=== PATIENT | female | born 1985 | race Two or more races ===

== ENCOUNTER 2020-09-23 14:32 | Outpatient (REF) | payer OTHER, SELFPAY ==
[2020-09-25 09:47] LABS: C. trachomatis RNA TMA NOT DETECTED (NOT DETECTED); N. gonorrhoeae RNA TMA NOT DETECTED (NOT DETECTED)
[2020-09-25 18:11] LABS: HPV mRNA E6/E7 rflx Not Detected (Not Detected)
== END 2020-09-23 14:33 | disposition home or self-care (01) ==
LOC: HO.LAB 14:32
PROVIDERS: PCP Internal Medicine; Visit Provider Advanced Practice Midwife
DX: Z01.419 Encounter for gynecological examination (general) (routine) without abnormal findings (principal); N88.9 Noninflammatory disorder of cervix uteri, unspecified; R51.9 Headache, unspecified; Z71.2 Person consulting for explanation of examination or test findings; Z20.2 Contact with and (suspected) exposure to infections with a predominantly sexual mode of transmission
CPT/HCPCS: 36415; 87491; 87591; 87624; 88142

== ENCOUNTER 2020-10-02 15:22 | Outpatient (REF) | payer OTHER, SELFPAY | END 2020-10-02 15:23 | disposition home or self-care (01) | LOC: HO.LAB 15:22 | PROVIDERS: PCP Internal Medicine; Visit Provider Obstetrics & Gynecology | DX: N88.9 Noninflammatory disorder of cervix uteri, unspecified (principal) | CPT/HCPCS: 57454; 88305 ==

== ENCOUNTER → 2020-10-16 12:06 | Outpatient (BNVA) | payer OTHER, SELFPAY | PROVIDERS: PCP Internal Medicine; Visit Provider Obstetrics & Gynecology ==

== ENCOUNTER 2021-03-27 14:27 | Outpatient (REF) | payer OTHER, SELFPAY ==
--- NOTE | ~2021-03-27 | MM_ITS ---
EXAMINATION: MM DIAGNOSTIC DIGITAL BREAST TOMOSYNTHESIS, BILATERAL US DIAGNOSTIC ULTRASOUND BREAST, RIGHT CLINICAL INFORMATION: 35-year-old with tender palpable fullness retroareolar right breast for approximately one month. The lifetime risk of breast cancer based on the Tyrer-Cuzick Model is 12%. COMPARISON: Mammography: 07/26/2018; targeted right breast ultrasound 07/26/2018 TECHNIQUE: Digital breast tomosynthesis is performed in both the craniocaudal and mediolateral oblique views along with computer-aided detection (CAD). Synthesized 2D images are generated from the tomosynthesis. Additional exaggerated right CC view is provided. Ultrasound right breast is targeted to the area of palpable concern retroareolar breast. Grayscale imaging and color Doppler are performed without and with harmonics. FINDINGS: The breasts are extremely dense, which lowers the sensitivity of mammography (ACR BI-RADS breast composition Category d). The right breast has increased density retroareolar region composition in area over 3 cm with probable obscured smooth margins on additional exaggerated CC mammographic sections. Neither breast shows architectural abnormality or abnormal calcifications. The axilla and skin contours are unremarkable. Ultrasound demonstrates an oval circumscribed hypoechoic mass retroareolar breast with smooth margins and overall size 3.7 x 2.5 x 3.3 cm. There is heterogeneous internal echogenicity with questionable motion on real-time imaging. A few scattered foci of color-flow near side may be related to this motion. No surrounding peripheral color flow. There are a few other scattered smaller cysts in the targeted area, and next largest measuring 1.4 x 0.6 cm 2:00 retroareolar. Prior ultrasound 07/26/2018 showed several small simple cysts, largest retroareolar measuring 2.7 x 1.4 x 1.5 cm. Results are discussed with the patient at time of visit. The retroareolar mass likely represents enlargement of a previously documented simple cyst in this area and now with complicated internal fluid, possibly increased protein content and/or cholesterol crystals or other sludge. Ultrasound guided aspiration is recommended. If lesion will not aspirate, then core sampling should be performed at same appointment. Results and recommendation called to office ([place]) for Dr. Vik Hawkins on 03/27/2021. MM/MM tomosynthesis diagnostic RT IMPRESSION: 1. Right: Probable complicated cyst retroareolar position corresponding to palpable concern and measuring 3.7 cm in greatest dimension. 2. Left: No mammographic evidence of malignancy. ASSESSMENT: BI-RADS 4: Suspicious (subcategory 4A: Low suspicion for malignancy) RECOMMENDATION: Ultrasound-guided aspiration retroareolar right breast. If lesion will not aspirate, then core sampling should be performed at same appointment.
== END 2021-03-27 14:28 | disposition home or self-care (01) ==
LOC: HO.MAMMO 14:27
PROVIDERS: Visit Provider Internal Medicine
DX: N63.11 Unspecified lump in the right breast, upper outer quadrant (principal)
CPT/HCPCS: 76642; 77061; 77065

== ENCOUNTER 2021-04-02 08:56 | Outpatient (REF) | payer OTHER, SELFPAY ==
--- NOTE | ~2021-04-02 | US_ITS ---
EXAMINATION: US BREAST CYST ASPIRATION, RIGHT CLINICAL INFORMATION: Breast lump and pain retroareolar region. COMPARISON: 03/27/2021 TECHNIQUE: Ultrasound-guided right breast cyst aspiration. FINDINGS: Informed consent was obtained from the patient prior to the procedure. During this process, the procedure and potential alternatives were explained, along with the intended outcome and benefits. The risks of the procedure, as well as the risk of not doing the procedure, were discussed. The patient was given the opportunity to ask questions regarding the procedure and appeared competent to make medical decisions. A signed consent form which documents this discussion was placed in the medical record. Using sterile technique and ultrasound guidance, an 18-gauge needle was directed into the retroareolar lesion with approximately 14 mL of cloudy yellow fluid being removed. The lesion aspirated entirely with some adjacent sound shadowing but which is related to nipple shadow. The fluid was not bloody. Patient tolerated the procedure without difficulty. US/US breast cyst asp RT IMPRESSION: Aspiration of right breast retroareolar complex cyst, as described. BI-RADS 2, Benign.
== END 2021-04-02 08:57 | disposition home or self-care (01) ==
LOC: HO.MAMMO 08:56
PROVIDERS: Visit Provider Surgery
DX: N63.11 Unspecified lump in the right breast, upper outer quadrant (principal); R92.1 Mammographic calcification found on diagnostic imaging of breast
CPT/HCPCS: 19000

== ENCOUNTER 2021-09-25 15:15 | Outpatient (REF) | payer OTHER, SELFPAY ==
[2021-09-26 00:57] LABS: CT PCR NOT DETECTED (Not Detect.); NG PCR NOT DETECTED (Not Detect.)
[2021-09-26 12:17] LABS: BV Int Neg Control Negative (Negative); BV Int Pos Control Positive (Positive)
[2021-09-28 05:26] LABS: HPV mRNA E6/E7 rflx Not Detected (Not Detected)
== END 2021-09-25 15:16 | disposition home or self-care (01) ==
LOC: HO.LAB 15:15
PROVIDERS: Visit Provider Advanced Practice Midwife
DX: Z01.419 Encounter for gynecological examination (general) (routine) without abnormal findings (principal); N88.9 Noninflammatory disorder of cervix uteri, unspecified; N89.8 Other specified noninflammatory disorders of vagina; N93.0 Postcoital and contact bleeding; N92.1 Excessive and frequent menstruation with irregular cycle; Z20.2 Contact with and (suspected) exposure to infections with a predominantly sexual mode of transmission
CPT/HCPCS: 87480; 87491; 87510; 87591; 87624; 87660; 88142

== ENCOUNTER 2021-11-15 13:17 | Outpatient (REF) | payer OTHER, SELFPAY ==
[2021-11-17 10:16] LABS: BV Int Neg Control Negative (Negative); BV Int Pos Control Positive (Positive)
== END 2021-11-15 13:18 | disposition home or self-care (01) ==
LOC: HO.LNP 13:17
PROVIDERS: Visit Provider Physician Assistant
DX: N94.9 Unspecified condition associated with female genital organs and menstrual cycle (principal)
CPT/HCPCS: 87255; 87480; 87510; 87660

== ENCOUNTER 2022-01-16 09:27 | Outpatient (REF) | payer OTHER, SELFPAY ==
[2022-01-16 10:50] LABS: Basophils Percent Auto 0.6 % (0-2); Eosinophils Absolute Auto 0.1 X10*3/uL (0.0-0.4); Eosinophils Percent Auto 0.9 % (0-4); Hematocrit 38.9 % (37.0-47.0); Hemoglobin 12.8 g/dl (12.0-16.0); Imm Gran Abs Auto 0.02 X10*3/uL (0.00-0.03); Imm Gran Pct Auto 0.3 % (0.0-0.4); Lymphocytes Absolute Auto 2.7 X10*3/uL (1.2-4.9); MANUAL DIFF FLAG NO; Mean Corpuscular HGB Conc 32.9 g/dl (31.0-35.0); Mean Corpuscular Hemoglobin 27.6 pg (27.0-33.0); Mean Corpuscular Volume 83.8 fL (80.0-98.0); Mean Platelet Volume 11.3 fL (9.4-12.3); Monocytes Absolute Auto 0.5 X10*3/uL (0.1-1.2); Monocytes Percent Auto 7.9 % (2-11); Neutrophils Absolute Auto 3.5 x10*3/uL (2.0-8.3); Neutrophils Percent Auto 51.3 % (45-73); Platelet Count 181 X10*3/uL (160-400); Red Blood Count 4.64 X10*6/uL (4.20-5.50); Red Cell Distribution Width 12.9 % (11.0-16.0); White Blood Count 6.8 X10*3/uL (4.8-10.8)
[2022-01-16 11:17] LABS: Alanine Aminotransferase 15 U/L (0-31); Albumin Level 4.5 g/dL (3.5-5.0); Alkaline Phosphatase 74 U/L (39-117); Anion Gap 13 (12-20); Aspartate Amino Transferase 22 U/L (5-31); Blood Urea Nitrogen 12 mg/dL (9-16); Calcium 9.3 mg/dL (8.4-10.2); Carbon Dioxide 23 mmol/L (22-29); Chloride 106 mmol/L (96-108); Cholesterol 255 mg/dL; Estimated Glomerular Filt Rate > 60; Glucose Fasting 93 mg/dL (60-99); HDL Cholesterol 66 mg/dL; LDL Cholesterol Calculated 171 mg/dl; Potassium 4.1 mmol/L (3.3-5.1); Sodium 138 mmol/L (135-145); Total Protein 7.5 g/dL (6.5-8.0); Triglycerides 91 mg/dL
[2022-01-16 11:32] LABS: HBc Num1 0.14 S/CO (0.00-0.79); HIV AB/AG Nonreactive (Nonreactive); HIV Num 1 0.08 S/CO (0.00-0.99); Hepatitis B Core Antibody Nonreactive (Nonreactive); ~HepC Num1 0.07 S/CO (0.00-0.79); ~Hepatitis C Antibody Nonreactive (Nonreactive)
[2022-01-16 11:37] LABS: TSH reflex Free T4 1.93 uIU/mL (0.32-4.0)
[2022-01-16 11:39] LABS: Syphilis Screen Nonreactive (Nonreactive)
[2022-01-22 16:22] LABS: Vitamin D 25-OH, D2 <4 ng/mL; Vitamin D 25-OH, D3 29 ng/mL; Vitamin D 25-OH, Total 29 ng/mL (30-100)
== END 2022-01-16 09:28 | disposition home or self-care (01) ==
LOC: HO.LAB 09:27
PROVIDERS: Absent Provider Internal Medicine; PCP Internal Medicine; Visit Provider Advanced Practice Midwife
DX: Z00.01 Encounter for general adult medical examination with abnormal findings (principal); R14.0 Abdominal distension (gaseous); R19.4 Change in bowel habit; Z20.2 Contact with and (suspected) exposure to infections with a predominantly sexual mode of transmission
CPT/HCPCS: 36415; 80053; 80061; 82306; 84443; 85025; 86704; 86780; 86803; 87389

== ENCOUNTER 2022-06-01 13:58 | Outpatient (REF) | payer OTHER, SELFPAY ==
[2022-06-01 15:04] LABS: Influenza A PCR NEGATIVE (Negative); Influenza B PCR NEGATIVE (Negative); Resp Syncy Virus RNA Qual PCR NEGATIVE (Negative); SARS COV2 PCR INHOUSE NEGATIVE (Negative)
== END 2022-06-01 13:59 | disposition home or self-care (01) ==
LOC: HO.LNP 13:58
PROVIDERS: Visit Provider Internal Medicine
DX: R43.9 Unspecified disturbances of smell and taste (principal); J02.9 Acute pharyngitis, unspecified; Z20.822 Contact with and (suspected) exposure to COVID-19
CPT/HCPCS: 0241U

== ENCOUNTER → 2022-10-02 15:19 | Outpatient (BNVA) | payer OTHER, SELFPAY | PROVIDERS: PCP Internal Medicine; Visit Provider Internal Medicine | DX: S60.221A Contusion of right hand, initial encounter (principal); X50.1XXA Overexertion from prolonged static or awkward postures, initial encounter | CPT/HCPCS: 73130; 99202 ==

== ENCOUNTER 2023-02-18 11:14 | Outpatient (REF) | payer OTHER, SELFPAY ==
[2023-02-19 03:09] LABS: CT PCR NOT DETECTED (Not Detect.); NG PCR NOT DETECTED (Not Detect.)
== END 2023-02-18 11:15 | disposition home or self-care (01) ==
LOC: HO.LNP 11:14
PROVIDERS: PCP Internal Medicine; Visit Provider Advanced Practice Midwife
DX: Z20.2 Contact with and (suspected) exposure to infections with a predominantly sexual mode of transmission (principal)
CPT/HCPCS: 0353U

== ENCOUNTER 2023-02-18 11:14 | Outpatient (AMB) | payer OTHER, SELFPAY ==
--- NOTE | 2023-02-18 11:16 | MHC.OFFVIS ---
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 Scribed for BRONWYN Talbert by Karla Rinaldi certified medical technician assistant, on 02/18/2023 Document Manager: Document Manager Present (aJne) Allergies amoxicillin Allergy (Unknown, Verified 02/18/23 11:20) hives ethinyl estradiol [Ortho Tri-Cyclen LO (28)] Adverse Reaction (Unknown, Verified 02/18/23 11:20) chest pain norgestimate [Ortho Tri-Cyclen LO (28)] Adverse Reaction (Unknown, Verified 02/18/23 11:20) chest pain Is last menstrual period known: Yes Last menstrual period: 02/10/23 Post menopausal: No Patient : No HPI HPI Comments History of Present Illness Details She is a premenopausal woman presenting for annual exam. She admits to eating healthy and tries to stay active with exercise. Currently sexually active, being careful . Is interested to know if she can get , not actively planning. Regular monthly periods. Denies vaginal itching and irritation. STD screening offered; she declines. Denies family hx of colon and ovarian cancer. Last pap smear 09/25/21. FORMERLY [facility] Medical History HPV test positive Surgical History Hx of LASIK Hx of wisdom tooth extraction Family History Maternal Aunt History of breast cancer Social History Housing: House Alcohol intake: current Alcohol intake frequency: holidays/special occasions only Patient Tobacco Use Status: Never used Tobacco e-Cigarette/Vaping Use: Never Used Second Hand Smoke Exposure: No service: No Current occupational status: employed Gender identity: Female Cognitive needs: No Hearing needs: No Vision needs: No Female Reproductive History Menstrual Age of Menarche: 12 Duration of menses: 3-5 days Date of last menstrual period: 02/10/23 control method: none Total pregnancies: 0 Date of last pap smear: 09/25/21 (neg pap and hpv) Physical Exam Vital Signs: Last Vital Signs BP 100/64 02/18/23 11:17 BMI result Body Mass Index 23.6 Const General: cooperative, healthy appearing, no acute distress, well developed and alert Orientation/consciousness: patient oriented x3 HEENT Head: Yes normal to inspection Eyes General: appearance normal, both eyes and all related structures Neck Neck: Yes normal visual inspection Thyroid: Thyroid normal Chest Chest palpation & inspection: normal inspection of the chest Breast/axilla inspection: normal inspection of the breasts (no puckering, dimpling, peau de orange, retraction, discharge, masses) Breast/axilla palpation: normal palpation of the breasts Resp Effort & Inspection: normal respiratory effort GI Inspection: Yes normal to inspection Palpation (GI): Soft to palpation (to palpation) Rectal Exam - Female: deferred Other: v-shaped lesion on cervix General: Yes bladder normal to inspection External Female Exam: normal external appearance and normal appearance of the urethra Speculum Exam - Vagina: normal appearance of the vagina, normal palpation and normal vaginal discharge Speculum Exam - Cervix: normal appearance of the cervix and normal palpation Bimanual exam- vagina & uterus: normal palpation and normal palpation Bimanual Exam- Adnexa, other: normal adnexae and no masses Skin General skin exam: no rashes or lesions noted Neuro General: patient oriented x3 Cognition (Neuro): normal cognition Extrem General: Yes normal to inspection Psych Attitude: cooperative Thought process: Normal thought process present Assessment & Plan Assessment & Plan (1) Encounter for well woman exam: Code(s): Z01.419 - Encounter for gynecological examination (general) (routine) without abnormal findings Plan: Discussed: Current recommendations for pap smears per ASCCP guidelines Breast awareness and periodic self breast exams. Maintaining a healthy lifestyle including a well balanced diet and routine exercise. Consult with fertility specialist regarding infertility-pt. will call if desires a ref. to [facility]. Safe sex for now. Consider PNV if plans ahead of time if planning . AMA, risks with age and . All of her questions and concerns were addressed to the best of my ability. RTO in one year for AG. (2) Pre-conception counseling: Code(s): Z31.69 - Encounter for other general counseling and advice on procreation Orders: Orders CT NG by PCR Today Z20.2 - Contact with and (suspected) exposure to infections with a predominantly sexual mode of transmission Coding Level of Care Code Est Pt Prev Care 18-39y(79657) Diagnoses Encounter for well woman exam Z01.419 Pre-conception counseling Z31.69
[2023-02-18 11:17] VITALS: BP 100/64; BMI 23.6
== END 2023-02-18 12:50 | disposition home or self-care (01) ==
LOC: HO.HWS 11:14
PROVIDERS: PCP Internal Medicine; Visit Provider Advanced Practice Midwife
DX: Z01.419 Encounter for gynecological examination (general) (routine) without abnormal findings (principal)
CPT/HCPCS: 99395

== ENCOUNTER 2023-05-20 08:18 | Outpatient (AMB) | payer OTHER, SELFPAY ==
[2023-05-20 09:34] VITALS: BP 110/70; PULSE 77; TEMP 36.8; O2SAT 98; BMI 24.3
--- NOTE | 2023-05-20 09:34 | AM.OFFWIN_ITS ---
Intake Vital Signs 05/20/23 09:34 Height 5 ft 3 in Weight 137 lb BMI 24.3 BP 110/70 Blood Pressure Location Lt brachial Position Sitting Pulse 77 Pulse Source Pulse Oximeter Temp 98.2 F Temp Source Oral Pulse Oximetry (%) 98 Oxygen Delivery Method Room Air Intake Visit Reasons: EP, left ear pain, congestion ([phone]) Intake Note: Pt is here today c/o Lt ear pain and sinus congestion x4days and sorethroat Patient Tobacco Use Status: Never used Tobacco Allergies amoxicillin Allergy (Unknown, Verified 05/20/23 09:36) hives ethinyl estradiol [Ortho Tri-Cyclen LO (28)] Adverse Reaction (Unknown, Verified 05/20/23 09:36) chest pain norgestimate [Ortho Tri-Cyclen LO (28)] Adverse Reaction (Unknown, Verified 05/20/23 09:36) chest pain Do you need a note to return to daycare/school/sports/work: Yes HPI HPI Comments History of Present Illness Details Patient is a 37-year-old female in for a sick visit. Patient reports left ear pain, sore throat, and sinus congestion x1 day. Patient has used [id number] medications with little effect. 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 Negative at home COVID test. Patient's right TM visible pearly garcia, left TM positive for erythema and fluid . No sinus tenderness. No mastoid tenderness. Clear nasal discharge. Tonsils +1, no petechiae. Patient likely has left otitis media. Unlikely mastoiditis. Plan will be for patient to take the full course of azithromycin p.o, and use Tylenol and Motrin p.r.n. FORMERLY [facility], [facility] Medical History HPV test positive Surgical History Hx of LASIK Hx of wisdom tooth extraction Family History Maternal Aunt History of breast cancer Social History Housing: House Alcohol intake: current Alcohol intake frequency: holidays/special occasions only Patient Tobacco Use Status: Never used Tobacco e-Cigarette/Vaping Use: Never Used Second Hand Smoke Exposure: No service: No Current occupational status: employed Gender identity: Female Cognitive needs: No Hearing needs: No Vision needs: No Female Reproductive History Menstrual Age of Menarche: 12 Review of Systems Const Denies body aches, Denies chills, Denies fever(s) and Denies headache(s) ENT Denies dizziness, Reports otalgia (Left ear), Denies headache(s), Reports nasal discharge (Clear) and Reports sore throat Resp Denies wheezing Neuro Denies dizziness and Denies headache(s) Aller/Immun Denies wheezing Physical Exam Vital Signs: Last Vital Signs Temp 98.2 F 05/20/23 09:34 Pulse 77 05/20/23 09:34 BP 110/70 05/20/23 09:34 Pulse Ox 98 05/20/23 09:34 Oxygen Delivery Method Room Air 05/20/23 09:34 BMI result Body Mass Index 24.3 Const General: cooperative and no acute distress Orientation/consciousness: patient oriented x3 Limitations: no limitations HEENT Head: Yes normocephalic Ears: external ears normal, TM normal on the right, mastoids normal and TM abnormal (Left TM) erythematous General nose exam: Nasal discharge present clear Face and sinus: Yes sinuses nontender Mouth: Normal oral and palatal mucosa present Neck Neck: Yes no lymphadenopathy Resp Effort & Inspection: normal respiratory effort Auscultation: clear to auscultation bilaterally Neuro General: patient oriented x3 Results AMB Rapid Strep AMB Rapid Strep Negative Last Edit by Mary Diaz CMA on 05/20/23 09:56 Results Reviewed Results Reviewed: Laboratory Last Values Strep Scn Rapid Clinic Negative 05/20/23 09:50 Assessment & Plan Assessment & Plan (1) Otitis media: Code(s): H66.90 - Otitis media, unspecified, unspecified ear Qualifiers: Chronicity: acute Laterality: left Orders: Orders AMB Rapid Strep Screen Today Z13.9 - Encounter for screening, unspecified SARS-CoV2/FLU/RSV Today J06.9 - Acute upper respiratory infection, unspecified Medications: New azithromycin For 250 mg dose pack: take 500 mg today (day 1), then 250 mg for 4 days (days 2-5) PO 6 tabs 0RF Coding Level of Care Code Est Pt Level 3 (70439) Diagnoses Otitis media H66.90 Chronicity: acute Laterality: left Time Spent (min) 20
--- NOTE | 2023-05-20 10:11 | MHC.OFFWIV ---
Intake Vital Signs 05/20/23 09:34 Height 5 ft 3 in Weight 137 lb BMI 24.3 BP 110/70 Blood Pressure Location Lt brachial Position Sitting Pulse 77 Pulse Source Pulse Oximeter Temp 98.2 F Temp Source Oral Pulse Oximetry (%) 98 Oxygen Delivery Method Room Air Intake Visit Reasons: EP, left ear pain, congestion ([phone]) Patient Tobacco Use Status: Never used Tobacco Allergies amoxicillin Allergy (Unknown, Verified 05/20/23 09:36) hives ethinyl estradiol [Ortho Tri-Cyclen LO (28)] Adverse Reaction (Unknown, Verified 05/20/23 09:36) chest pain norgestimate [Ortho Tri-Cyclen LO (28)] Adverse Reaction (Unknown, Verified 05/20/23 09:36) chest pain PFSH Medical History HPV test positive Surgical History Hx of LASIK Hx of wisdom tooth extraction Family History Maternal Aunt History of breast cancer Social History Housing: House Alcohol intake: current Alcohol intake frequency: holidays/special occasions only Patient Tobacco Use Status: Never used Tobacco e-Cigarette/Vaping Use: Never Used Second Hand Smoke Exposure: No service: No Current occupational status: employed Gender identity: Female Cognitive needs: No Hearing needs: No Vision needs: No Female Reproductive History Menstrual Age of Menarche: 12 Physical Exam Vital Signs: Last Vital Signs Temp 98.2 F 05/20/23 09:34 Pulse 77 05/20/23 09:34 BP 110/70 05/20/23 09:34 Pulse Ox 98 05/20/23 09:34 Oxygen Delivery Method Room Air 05/20/23 09:34 BMI result Body Mass Index 24.3 Results AMB Rapid Strep AMB Rapid Strep Negative Last Edit by Mary Diaz CMA on 05/20/23 09:56 Results Reviewed Results Reviewed: Laboratory Last Values Strep Scn Rapid Clinic Negative 05/20/23 09:50 Assessment & Plan Assessment & Plan Orders: Orders AMB Rapid Strep Screen Today Z13.9 - Encounter for screening, unspecified Coding
== END 2023-05-20 11:17 | disposition home or self-care (01) ==
PROVIDERS: PCP Internal Medicine; Visit Provider Nurse Practitioner Primary Care
DX: H66.92 Otitis media, unspecified, left ear (principal); J02.9 Acute pharyngitis, unspecified
CPT/HCPCS: 87880; 99213; 99499

== ENCOUNTER 2023-05-20 10:39 | Outpatient (REF) | payer OTHER, SELFPAY ==
[2023-05-20 14:28] LABS: Influenza A PCR NEGATIVE (Negative); Influenza B PCR NEGATIVE (Negative); Resp Syncy Virus RNA Qual PCR NEGATIVE (Negative); SARS COV2 PCR INHOUSE NEGATIVE (Negative)
== END 2023-05-20 10:40 | disposition home or self-care (01) ==
LOC: HO.LAB 10:39
PROVIDERS: Visit Provider Nurse Practitioner Primary Care
DX: Z11.52 Encounter for screening for COVID-19 (principal); J06.9 Acute upper respiratory infection, unspecified
CPT/HCPCS: 0241U

== ENCOUNTER 2023-08-06 09:32 | Outpatient (AMB) | payer OTHER, SELFPAY ==
--- NOTE | 2023-08-06 10:13 | AM.OFFWIN_ITS ---
Intake Vital Signs 08/06/23 10:18 Height 5 ft 3 in Weight 137 lb 2 oz BMI 24.3 BP 106/72 Blood Pressure Location Lt brachial Position Sitting Pulse 95 Pulse Source Pulse Oximeter Temp 97.5 F Temp Source Oral Pulse Oximetry (%) 98 Oxygen Delivery Method Room Air Intake Visit Reasons: EP, headache,sore throat,earache([phone]) Intake Note: Pt is here today for head and sore throat, pt states it started couple days ago Patient Tobacco Use Status: Never used Tobacco Allergies amoxicillin Allergy (Unknown, Verified 08/06/23 10:13) hives ethinyl estradiol [Ortho Tri-Cyclen LO (28)] Adverse Reaction (Unknown, Verified 08/06/23 10:13) chest pain norgestimate [Ortho Tri-Cyclen LO (28)] Adverse Reaction (Unknown, Verified 08/06/23 10:13) chest pain Do you need a note to return to daycare/school/sports/work: Yes HPI HPI Comments History of Present Illness Details 37 y/o female presents to walk in clinic with c/o headaches, sore- throat and ear pain PFSH Medical History HPV test positive Surgical History Hx of LASIK Hx of wisdom tooth extraction Family History Maternal Aunt History of breast cancer Social History Housing: House Alcohol intake: current Alcohol intake frequency: holidays/special occasions only Patient Tobacco Use Status: Never used Tobacco e-Cigarette/Vaping Use: Never Used Second Hand Smoke Exposure: No service: No Current occupational status: employed Gender identity: Female Cognitive needs: No Hearing needs: No Vision needs: No Female Reproductive History Menstrual Age of Menarche: 12 Review of Systems Const All systems reviewed & are unremarkable except as noted in HPI and below Physical Exam Vital Signs: Last Vital Signs Temp 97.5 F 08/06/23 10:18 Pulse 95 08/06/23 10:18 BP 106/72 08/06/23 10:18 Pulse Ox 98 08/06/23 10:18 Oxygen Delivery Method Room Air 08/06/23 10:18 BMI result Body Mass Index 24.3 Const General: comfortable and no acute distress HEENT Head: Yes normocephalic Ears: external ears normal and TM's normal bilaterally General nose exam: Normal nasal mucous membranes and turbinates present Face and sinus: Yes sinuses nontender Mouth: Normal oral and palatal mucosa present and moist mucous membranes Throat: Yes posterior oropharynx normal and Yes postnasal drainage Resp Effort & Inspection: normal respiratory effort Auscultation: clear to auscultation bilaterally Cardio Rate: regular rate Rhythm: regular rhythm Results AMB Rapid Strep AMB Rapid Strep Negative Last Edit by Selene Mejia CMA on 08/06/23 10 :31 Results Reviewed Results Reviewed: Laboratory Last Values Strep Scn Rapid Clinic Negative 08/06/23 10:30 Assessment & Plan Assessment & Plan (1) Upper respiratory tract infection: Code(s): J06.9 - Acute upper respiratory infection, unspecified Qualifiers: Pharyngitis/tonsillitis etiology: other specified organisms URI type: acute pharyngitis Qualified Code(s): J02.8 - Acute pharyngitis due to other specified organisms Plan: - Warm fluids - Rest - OTC cold remedies -Zpack Orders: Orders AMB Rapid Strep Screen Today Z13.9 - Encounter for screening, unspecified SARS-CoV2/FLU/RSV Today J06.9 - Acute upper respiratory infection, unspecified Medications: New acetaminophen 500 mg PO Q6H PRN 30 caps 0RF pain (scale score 4-6) azithromycin 500 mg PO DAILY 3 days 3 tabs 0RF benzonatate 200 mg (2 x 100 mg) PO TID 90 caps 0RF J06.9 - Acute upper respiratory infection, unspecified Coding Level of Care Code Est Pt Level 3 (77395) Diagnoses Acute pharyngitis due to other specified organisms J02.8 Pharyngitis/tonsillitis etiology: other specified organisms URI type: acute pharyngitis Time Spent (min) 15
[2023-08-06 10:18] VITALS: BP 106/72; PULSE 95; TEMP 36.4; O2SAT 98; BMI 24.3
== END 2023-08-06 10:58 | disposition home or self-care (01) ==
PROVIDERS: PCP Internal Medicine; Visit Provider Nurse Practitioner Family
DX: J02.9 Acute pharyngitis, unspecified (principal)
CPT/HCPCS: 87880; 99213

== ENCOUNTER 2023-08-06 14:36 | Outpatient (REF) | payer OTHER, SELFPAY ==
[2023-08-06 15:40] LABS: Influenza A PCR NEGATIVE (Negative); Influenza B PCR NEGATIVE (Negative); Resp Syncy Virus RNA Qual PCR NEGATIVE (Negative); SARS COV2 PCR INHOUSE NEGATIVE (Negative)
== END 2023-08-06 14:37 | disposition home or self-care (01) ==
LOC: HO.HMGCLNP 14:36
PROVIDERS: Visit Provider Nurse Practitioner Family
DX: Z11.52 Encounter for screening for COVID-19 (principal); J06.9 Acute upper respiratory infection, unspecified
CPT/HCPCS: 0241U

== ENCOUNTER 2023-09-01 12:32 | Outpatient (AMB) | payer OTHER, SELFPAY ==
--- NOTE | 2023-09-01 12:40 | A.OFFPC_ITS ---
Vital Signs 09/01/23 12:41 Height 5 ft 3 in Weight 139 lb BMI 24.6 BP 100/62 Blood Pressure Location Rt brachial Position Sitting Pulse 73 Pulse Source Pulse Oximeter Pulse Oximetry (%) 98 Oxygen Delivery Method Room Air Intake Visit Reasons: Headache Allergies amoxicillin Allergy (Unknown, Verified 09/01/23 12:42) hives ethinyl estradiol [Ortho Tri-Cyclen LO (28)] Adverse Reaction (Unknown, Verified 09/01/23 12:42) chest pain norgestimate [Ortho Tri-Cyclen LO (28)] Adverse Reaction (Unknown, Verified 09/01/23 12:42) chest pain Medication List - Last Reconciled 09/01/23 by Angel Luis Hawkins MD acetaminophen 500 mg PO Q6H PRN Tobacco use date assessed: 09/01/23 Dental Screening Dental Screen Date: 09/01/23 Did you have a dental visit in the last 12 months?: Yes Did you have a dental problem in the last 6 months where you did not have access to dental care?: No Was dental information given to patient?: Patient has dentist HPI Headache HPI Details Patient is a 37 year female with a history of migraine headache Patient says that her headaches are getting more frequently and they present with a throbbing pain behind her left eye Currently she is only taking ibuprofen whenever she gets a headache I am prescribing amitriptyline 10 mg to be taken at night And sumatriptan 50 mg with 1 ibuprofen at the onset of headache. We will book follow-up appointment in 3 weeks [facility] Medical History HPV test positive Surgical History Hx of wisdom tooth extraction Hx of LASIK Family History Maternal Aunt History of breast cancer Social History Housing: House Alcohol intake: current Alcohol intake frequency: holidays/special occasions only Patient Tobacco Use Status: Never used Tobacco e-Cigarette/Vaping Use: Never Used Second Hand Smoke Exposure: No service: No Current occupational status: employed Gender identity: Female Cognitive needs: No Hearing needs: No Vision needs: No Female Reproductive History Menstrual Age of Menarche: 12 Questionnaire Thrive Questionnaire Date Thrive assessed: 12/19/21 AUDIT C Alcohol Use Questionnaire (AUDIT-C) 1. How often do you have a drink containing alcohol?: Monthly or less 2. How many drinks containing alcohol do you have on a typical day when you are drinking?: 1 or 2 3. How often do you have six or more drinks on one occasion?: Never Total Score: 1 RANDI-7 AMB Questionnaire RANDI-7 Date RANDI - 7 assessed: 12/19/21 Source: Developed by Drs. Melo Calvillo, Anita Alexander, Hubert Oh and colleagues, with an educational rusty from [employer]. Review of Systems Const Denies chills and Denies fever(s) ENT Denies epistaxis and Denies nasal discharge Card Denies chest pain Resp Denies chest congestion, Denies cough and Denies hemoptysis GI Denies diarrhea and Denies nausea Skin/Breast Denies rash Neuro Reports no additional complaints Psych Reports no additional complaints Endo Reports no additional complaints Physical exam (Primary Care) Vital Signs: Last Vital Signs Pulse 73 09/01/23 12:41 BP 100/62 09/01/23 12:41 Pulse Ox 98 09/01/23 12:41 Oxygen Delivery Method Room Air 09/01/23 12:41 BMI result Body Mass Index 24.6 Tobacco/Smoking Status: Tobacco use Status Tobacco use date assessed 09/01/23 09/01/23 12:44 Patient Tobacco Use Status Never used Tobacco 09/01/23 12:44 e-Cigarette/Vaping Use Never Used 09/01/23 12:44 Thrive Assessment: Date of Thrive Assessment Date Thrive assessed 12/19/21 09/01/23 12:44 Const General: cooperative, comfortable and no acute distress Orientation/consciousness: patient oriented x3 HENMT Head: Yes normocephalic Eyes General: appearance normal, both eyes and all related structures Pupils: Equal, round and reactive pupils present EOM: EOMs intact bilaterally Neck Neck: Yes supple Resp Effort & Inspection: normal respiratory effort, no cough and no stridor Cardio Rhythm: regular rhythm Heart sounds: S1 normal heart sound present and S2 normal heart sound present Skin General skin exam: turgor normal Neuro Other: Neurological exam nonfocal General: patient oriented x3, tone normal and moves all extremities Cranial nerves: Yes Equal, round and reactive pupils present Extrem Right lower extremity: no edema Left lower extremity: no edema Assessment and Plan Assessment & Plan (1) Migraine headache without aura: Code(s): G43.009 - Migraine without aura, not intractable, without status migrainosus Qualifiers: Status migrainosus presence: without status migrainosus Intractability: intractable Qualified Code(s): G43.019 - Migraine without aura, intractable, without status migrainosus Plan Patient is a 37 year female with a history of migraine headache Patient says that her headaches are getting more frequently and they present with a throbbing pain behind her left eye Currently she is only taking ibuprofen whenever she gets a headache I am prescribing amitriptyline 10 mg to be taken at night And sumatriptan 50 mg with 1 ibuprofen at the onset of headache. We will book follow-up appointment in 3 weeks Medications: New amitriptyline 10 mg PO BEDTIME 30 tabs 0RF sumatriptan succinate Take at onset of headache with 1 ibuprofen 50 mg PO ONCE PRN 10 tabs 0RF migraine headache Coding Level of Care Code Est Pt Level 3 (35904) Diagnoses Intractable migraine without aura and without status migrainosus G43.019 Status migrainosus presence: without status migrainosus Intractability: intractable
[2023-09-01 12:41] VITALS: BP 100/62; PULSE 73; O2SAT 98; BMI 24.6
== END 2023-09-01 14:11 | disposition home or self-care (01) ==
PROVIDERS: PCP Internal Medicine; Visit Provider Internal Medicine
DX: G43.019 Migraine without aura, intractable, without status migrainosus (principal)
CPT/HCPCS: 99213

== ENCOUNTER → 2023-09-02 14:52 | Outpatient (BNVA) | payer OTHER, SELFPAY | PROVIDERS: PCP Internal Medicine; Visit Provider Physician Assistant | DX: S00.83XA Contusion of other part of head, initial encounter (principal); W50.0XXA Accidental hit or strike by another person, initial encounter; S80.812A Abrasion, left lower leg, initial encounter; W50.1XXA Accidental kick by another person, initial encounter | CPT/HCPCS: 99203 ==

== ENCOUNTER 2023-09-23 09:07 | Outpatient (AMB) | payer OTHER, SELFPAY ==
--- NOTE | 2023-09-23 09:08 | MHC.PC.OV ---
Intake Visit Reasons: F/u migraine med~ Allergies amoxicillin Allergy (Unknown, Verified 09/23/23 09:08) hives ethinyl estradiol [Ortho Tri-Cyclen LO (28)] Adverse Reaction (Unknown, Verified 09/23/23 09:08) chest pain norgestimate [Ortho Tri-Cyclen LO (28)] Adverse Reaction (Unknown, Verified 09/23/23 09:08) chest pain Medication List - Last Reconciled 09/23/23 by Angel Luis Hawkins MD acetaminophen 500 mg PO Q6H PRN Tobacco use date assessed: 09/23/23 Dental Screening Dental Screen Date: 09/23/23 Did you have a dental visit in the last 12 months?: Yes Did you have a dental problem in the last 6 months where you did not have access to dental care?: No Was dental information given to patient?: Patient has dentist HPI F/u migraine med~ HPI Details Patient is 37-year-old female who suffers from migraine headaches Last visit I prescribed amitriptyline 10 mg as migraine prevention and sumatriptan for acute headaches Patient says that she read the side effect and decided not to take the medications, her headaches are not that bad currently. She has a new concern, patient says that in past 2 weeks it has happened 4 times 2 times when she was on the commode for bowel movement, sadly patient felt lightheaded and broke out into cold sweats She had to lay down on the floor, gradually she got better. First time it happened after having gastroenteritis with diarrhea and vomiting But 2nd time she did not had such symptoms. Twice it has happened in her office when she was working patient felt as if she is going to have similar symptoms. 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 I am booking her appointment with Neurology Briefly I discussed with the patient that her symptoms sound like vasovagal episodes I would recommend to keep herself well hydrated while she wait for Neurology appointment If her symptoms gets worse she should go to emergency room. PFSH Medical History HPV test positive Surgical History Hx of wisdom tooth extraction Hx of LASIK Family History Maternal Aunt History of breast cancer Social History Housing: House Alcohol intake: current Alcohol intake frequency: holidays/special occasions only Patient Tobacco Use Status: Never used Tobacco e-Cigarette/Vaping Use: Never Used Second Hand Smoke Exposure: No service: No Current occupational status: employed Gender identity: Female Cognitive needs: No Hearing needs: No Vision needs: No Female Reproductive History Menstrual Age of Menarche: 12 Questionnaire Thrive Questionnaire Date Thrive assessed: 12/19/21 AUDIT C Alcohol Use Questionnaire (AUDIT-C) 1. How often do you have a drink containing alcohol?: Monthly or less 2. How many drinks containing alcohol do you have on a typical day when you are drinking?: 1 or 2 3. How often do you have six or more drinks on one occasion?: Never Total Score: 1 Score Reviewed/Action Taken: Yes RANDI-7 AMB Questionnaire RANDI-7 Date RANDI - 7 assessed: 12/19/21 Source: Developed by Drs. Melo Calvillo, Anita Alexander, Hubert Oh and colleagues, with an educational rusty from [employer]. Review of Systems Const Denies chills and Denies fever(s) ENT Denies epistaxis and Denies nasal discharge Card Denies chest pain Resp Denies chest congestion, Denies cough and Denies hemoptysis Skin/Breast Denies rash Neuro Reports no additional complaints Psych Reports no additional complaints Endo Reports no additional complaints Physical exam (Primary Care) Tobacco/Smoking Status: Tobacco use Status Tobacco use date assessed 09/23/23 09/23/23 09:09 Patient Tobacco Use Status Never used Tobacco 09/23/23 09:09 e-Cigarette/Vaping Use Never Used 09/23/23 09:09 Thrive Assessment: Date of Thrive Assessment Date Thrive assessed 12/19/21 09/23/23 09:09 Telehealth Telehealth Location of provider rendering services: practice address Location of patient: address on file Patient Identification confirmed using: Name, : Yes Telehealth method: video Patient verbally consented to treatment: Yes Patient verbally consented to billing insurance company: Yes Patient informed of any privacy concerns related to visit: Yes Assessment and Plan Assessment & Plan (1) Migraine headache without aura: Code(s): G43.009 - Migraine without aura, not intractable, without status migrainosus Qualifiers: Intractability: intractable Status migrainosus presence: without status migrainosus Qualified Code(s): G43.019 - Migraine without aura, intractable, without status migrainosus (2) Pre-syncope: Code(s): R55 - Syncope and collapse (3) Cold sweat: Code(s): R68.89 - Other general symptoms and signs (4) Lightheadedness: Code(s): R42 - Dizziness and giddiness Plan Patient is 37-year-old female who suffers from migraine headaches Last visit I prescribed amitriptyline 10 mg as migraine prevention and sumatriptan for acute headaches Patient says that she read the side effect and decided not to take the medications, her headaches are not that bad currently. She has a new concern, patient says that in past 2 weeks it has happened 4 times 2 times when she was on the commode for bowel movement, sadly patient felt lightheaded and broke out into cold sweats She had to lay down on the floor, gradually she got better. First time it happened after having gastroenteritis with diarrhea and vomiting But 2nd time she did not had such symptoms. Twice it has happened in her office when she was working patient felt as if she is going to have similar symptoms. 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 I am booking her appointment with Neurology Briefly I discussed with the patient that her symptoms sound like vasovagal episodes I would recommend to keep herself well hydrated while she wait for Neurology appointment If her symptoms gets worse she should go to emergency room. Orders: Referrals Neurology Referral G43.009 - Migraine without aura, not intractable, without status migrainosus, R55 - Syncope and collapse Coding Level of Care Code Tele Est Pt Level 4 (65470) Diagnoses Intractable migraine without aura and without status migrainosus G43.019 Intractability: intractable Status migrainosus presence: without status migrainosus Pre-syncope R55 Cold sweat R68.89 Lightheadedness R42 Time Spent (min) 30 Comment 3 minute pre visit, 20th patient, 7 charting coordination of care
== END 2023-09-23 09:46 | disposition home or self-care (01) ==
LOC: HO.HMGC 09:09
PROVIDERS: PCP Internal Medicine; Visit Provider Internal Medicine
DX: G43.019 Migraine without aura, intractable, without status migrainosus (principal); R55 Syncope and collapse; R68.89 Other general symptoms and signs; R42 Dizziness and giddiness
CPT/HCPCS: 99214

== ENCOUNTER 2023-12-29 14:21 | Outpatient (AMB) | payer OTHER, SELFPAY ==
[2023-12-29 14:38] VITALS: BP 102/68; PULSE 71; O2SAT 98; BMI 25.0
--- NOTE | 2023-12-29 14:38 | A.OFFPC_ITS ---
Vital Signs 12/29/23 14:38 Height 5 ft 3 in Weight 141 lb 3 oz BMI 25.0 BP 102/68 Blood Pressure Location Rt brachial Position Sitting Pulse 71 Pulse Source Pulse Oximeter Pulse Oximetry (%) 98 Oxygen Delivery Method Room Air Intake Visit Reasons: Annual PE Allergies amoxicillin Allergy (Unknown, Verified 12/29/23 14:40) hives ethinyl estradiol [Ortho Tri-Cyclen LO (28)] Adverse Reaction (Unknown, Verified 12/29/23 14:40) chest pain norgestimate [Ortho Tri-Cyclen LO (28)] Adverse Reaction (Unknown, Verified 12/29/23 14:40) chest pain Tobacco use date assessed: 12/29/23 Dental Screening Dental Screen Date: 12/29/23 Did you have a dental visit in the last 12 months?: Yes Did you have a dental problem in the last 6 months where you did not have access to dental care?: No Was dental information given to patient?: Patient has dentist HPI Annual PE HPI Details Patient is a 38-year-old female came in today for physical exam OBGYN visit is usually on February of every year and she has appointment coming up Also need Dermatology appointment for skin cancer screening, she has few moles that were not there before Has not seen neurologist yet for migraine headache and possible presyncope I have given her number to call in book her own appointment Lab order placed to be done fasting Physical exam 1 year [facility] Medical History HPV test positive Surgical History Hx of wisdom tooth extraction Hx of LASIK Family History Maternal Aunt History of breast cancer Social History Housing: House Alcohol intake: current Alcohol intake frequency: holidays/special occasions only Patient Tobacco Use Status: Never used Tobacco e-Cigarette/Vaping Use: Never Used Second Hand Smoke Exposure: No service: No Current occupational status: employed Gender identity: Female Cognitive needs: No Hearing needs: No Vision needs: No Female Reproductive History Menstrual Age of Menarche: 12 Questionnaire PHQ-9 Over the last 2 weeks, how often have you been bothered by any of the following problems? 1. Little interest or pleasure in doing things: not at all 2. Feeling down, depressed, or hopeless: not at all 3. Trouble falling or staying asleep, or sleeping too much: not at all 4. Feeling tired or having little energy: not at all 5. Poor appetite or overeating: not at all 6. Feeling bad about yourself - or that you are a failure or have let yourself or your family down: not at all 7. Trouble concentrating on things, such as reading the newspaper or watching television: not at all 8. Moving or speaking so slowly that other people could have noticed. Or the opposite - being so fidgety or restless that you have been moving around a lot more than usual: not at all 9. Thoughts that you would be better off or of hurting yourself in some way: not at all Total score: 0 Depression Screening Interpretation: Negative Depression Screening Done: Yes 63942 - PHQ-9 Billing: Yes Source: Developed by Drs. Melo Calvillo, Anita Alexander, Hubert Oh and colleagues, with an educational rusty from [employer]. Thrive Questionnaire Date Thrive assessed: 12/29/23 I am a: Patient What is your living situation today?: I have a steady place to live Within the past 12 months, did the food you bought not last and you didn't have the money to get more?: Never true Within the past 12 months, did you worry whether your food would run out before you got money to buy more?: Never true Do you have trouble paying for medicines?: No Do you have trouble getting transportation to medical appointments?: No Do you have trouble paying your heating and electricity bill?: No Do you have trouble taking care of your child, family member or friend?: No Do you have trouble with day-to-day activities such as bathing, preparing meals, shopping, managing finances, etc.?: No Are you currently unemployed and looking for a job?: No Are you interested in more education?: No Please select the resources that you would like help with: None Currently or been in a relationship where the following occur: no concerns reported THRIVE Score: 0 AUDIT C Alcohol Use Questionnaire (AUDIT-C) 1. How often do you have a drink containing alcohol?: Monthly or less 2. How many drinks containing alcohol do you have on a typical day when you are drinking?: 1 or 2 3. How often do you have six or more drinks on one occasion?: Never Total Score: 1 Score Reviewed/Action Taken: Yes RANDI-7 AMB Questionnaire RANDI-7 Date RANDI - 7 assessed: 12/29/23 Feeling nervous, anxious, or on edge: 1 = Several days Not being able to stop or control worryin = Not at all Worrying too much about different things: 0 = Not at all Trouble relaxin = Not at all Being so restless that it is hard to sit still: 0 = Not at all Becoming easily annoyed or irritable: 0 = Not at all Feeling afraid as if something awful might happen: 0 = Not at all Total RANDI-7 score (0-4 normal; 5-9 mild; 10-14 moderate; 15-21 severe): 1 Source: Developed by Drs. Melo Calvillo, Anita Alexander, Hubert Oh and colleagues, with an educational rusty from [employer]. RANDI-7 Assessment Billing RANDI-7 Assessment Tool: RANDI-7 Assessment 85118 Review of Systems Const Denies chills, Denies fever(s) and Denies headache(s) Eyes Denies blurry vision ENT Denies headache(s), Denies nasal discharge, Denies nasal obstruction, Denies odynophagia and Denies sinus pain Card Denies chest pain at rest and Denies chest pain with activity Resp Denies cough and Denies hemoptysis GI Denies diarrhea, Denies odynophagia, Denies vomiting and Denies hematemesis Reports as per HPI Musc Denies abnormal gait Skin/Breast Reports as per HPI Neuro Denies Neuro-related abnormal movements, Denies Abnormal speech present, Denies abnormal gait, Denies headache(s) and Denies Sensory deficit (Neuro) Psych Denies mood swings and Denies paranoia Endo Reports as per HPI Gadiel/Lymph Reports as per HPI Aller/Immun Reports as per HPI Physical exam (Primary Care) Vital Signs: Last Vital Signs Pulse 71 12/29/23 14:38 BP 102/68 12/29/23 14:38 Pulse Ox 98 06/12/24 14:38 Oxygen Delivery Method Room Air 12/29/23 14:38 BMI result Body Mass Index 25.0 Tobacco/Smoking Status: Tobacco use Status Tobacco use date assessed 12/29/23 12/29/23 14:40 Patient Tobacco Use Status Never used Tobacco 12/29/23 14:40 e-Cigarette/Vaping Use Never Used 12/29/23 14:40 Depression Screening Interpretation: Negative Thrive Assessment: Date of Thrive Assessment Date Thrive assessed 12/19/21 12/29/23 14:40 Currently or been in a relationship where the following occur: no concerns reported Const General: cooperative, comfortable and no acute distress Orientation/consciousness: patient oriented x3 HENMT Head: Yes normocephalic and Yes atraumatic Eyes General: appearance normal, both eyes and all related structures Pupils: Equal, round and reactive pupils present EOM: EOMs intact bilaterally Neck Neck: Yes supple and No lymphadenopathy Thyroid: Thyroid normal Lymphatic: no lymphadenopathy noted Resp Effort & Inspection: normal respiratory effort and able to speak in complete sentences Auscultation: clear to auscultation bilaterally Cardio Heart sounds: S1 normal heart sound present and S2 normal heart sound present GI Palpation (GI): Soft to palpation and nontender Auscultation: normal bowel sounds General: Yes no CVA tenderness Back/Spine/Pelvis Back: no CVA tenderness Skin General skin exam: elasticity normal and turgor normal Neuro General: patient oriented x3 and gait normal Cranial nerves: Yes Equal, round and reactive pupils present Speech: No Abnormal speech present Sensory Exam: No Sensory deficit (Neuro) Coordination: tandem gait normal and Romberg test negative Extrem General: Yes normal exam except as noted and No edema Assessment and Plan Assessment & Plan (1) Annual physical exam: Code(s): Z00.00 - Encounter for general adult medical examination without abnormal find ings (2) Migraine headache without aura: Code(s): G43.009 - Migraine without aura, not intractable, without status migrainosus Qualifiers: Intractability: intractable Status migrainosus presence: without status migrainosus Qualified Code(s): G43.019 - Migraine without aura, intractable, without status migrainosus (3) Pre-syncope: Code(s): R55 - Syncope and collapse (4) Lightheadedness: Code(s): R42 - Dizziness and giddiness Plan Patient is a 38-year-old female came in today for physical exam OBGYN visit is usually on February of every year and she has appointment coming up Also need Dermatology appointment for skin cancer screening, she has few moles that were not there before Has not seen neurologist yet for migraine headache and possible presyncope I have given her number to call in book her own appointment Lab order placed to be done fasting Physical exam 1 year Orders: Orders Complete Blood Count Auto Diff Today G43.019 - Migraine without aura, intractable, without status migrainosus, R42 - Dizziness and giddiness, R55 - Syncope and collapse, Z00.01 - Encounter for general adult medical examination with abnormal findings Lipid Panel Today G43.019 - Migraine without aura, intractable, without status migrainosus, R42 - Dizziness and giddiness, R55 - Syncope and collapse, Z00.01 - Encounter for general adult medical examination with abnormal findings Comprehensive [place]. Panel Fast Today G43.019 - Migraine without aura, intractable, without status migrainosus, R42 - Dizziness and giddiness, R55 - Syncope and collapse, Z00.01 - Encounter for general adult medical examination with abnormal findings TSH reflex Free T4 Today G43.019 - Migraine without aura, intractable, without status migrainosus, R42 - Dizziness and giddiness, R55 - Syncope and collapse, Z00.01 - Encounter for general adult medical examination with abnormal findings Referrals Dermatology Referral Z12.83 - Encounter for screening for malignant neoplasm of skin Coding Level of Care Code Est Pt Prev Care 18-39y(35433) Diagnoses Annual physical exam Z00.00 Intractable migraine without aura and without status migrainosus G43.019 Intractability: intractable Status migrainosus presence: without status migrainosus Pre-syncope R55 Lightheadedness R42 Additional Codes RANDI-7 Assessment Billing - RANDI-7 Assessment Tool: RANDI-7 Assessment [id number] ([id number])
== END 2023-12-29 15:09 | disposition home or self-care (01) ==
PROVIDERS: PCP Internal Medicine; Visit Provider Internal Medicine
DX: Z00.00 Encounter for general adult medical examination without abnormal findings (principal); G43.019 Migraine without aura, intractable, without status migrainosus; R55 Syncope and collapse; R42 Dizziness and giddiness
CPT/HCPCS: 99395

== ENCOUNTER 2024-02-24 14:29 | Outpatient (REF) | payer BC, SELFPAY ==
[2024-02-25 14:47] LABS: Bacterial Vaginosis PCR NEGATIVE (Negative); Candida Group PCR NOT DETECTED (Not Detect); Candida glab krusei PCR NOT DETECTED (Not Detect); Trichomonas vaginalis PCR NOT DETECTED (Not Detect)
[2024-02-25 15:11] LABS: CT PCR NOT DETECTED (Not Detect.); NG PCR NOT DETECTED (Not Detect.)
== END 2024-02-24 14:30 | disposition home or self-care (01) ==
LOC: HO.LNP 14:29
PROVIDERS: PCP Internal Medicine; Visit Provider Advanced Practice Midwife
DX: N94.12 Deep dyspareunia (principal)
CPT/HCPCS: 0352U; 87491; 87591

== ENCOUNTER 2024-02-24 14:29 | Outpatient (AMB) | payer BC, SELFPAY ==
--- NOTE | 2024-02-24 14:52 | MHC.OFFVIS ---
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 Doing well with concerns: menstrual cramps, painful intimacy with deep penetration on occasion, some incontinence w/exercise. She tries to eat healthy and stays active with exercise. Regular monthly menses. Currently is sexually active. She denies vaginal itching and irritation. Not interested in control currently using withdrawal method successfully. STI screening offered; she declines. Denies family history of ovarian or colon cancer. Last pap smear 2019, negative. PFSH Medical History HPV test positive Surgical History Hx of wisdom tooth extraction Hx of LASIK Family History Maternal Aunt History of breast cancer Social History Housing: House Alcohol intake: current Alcohol intake frequency: holidays/special occasions only Patient Tobacco Use Status: Never used Tobacco e-Cigarette/Vaping Use: Never Used Second Hand Smoke Exposure: No service: No Current occupational status: employed Gender identity: Female Cognitive needs: No Hearing needs: No Vision needs: No Female Reproductive History Menstrual Age of Menarche: 12 Duration of menses: 3-5 days Date of last menstrual period: 02/17/24 control method: none and natural family planning Total pregnancies: 0 Date of last pap smear: 09/26/21 (neg pap and hpv) Review of Systems Const All systems reviewed & are unremarkable except as noted in HPI and below Reports as per HPI Eyes Reports no additional complaints ENT Reports no additional complaints Card Reports no additional complaints Resp Reports no additional complaints GI Reports as per HPI and Reports no additional complaints Reports as per HPI Musc Reports no additional complaints Skin/Breast Reports as per HPI Neuro Reports no additional complaints Psych Reports no additional complaints Endo Reports no additional complaints Gadiel/Lymph Reports no additional complaints Aller/Immun Reports no additional complaints Physical Exam Vital Signs: Last Vital Signs BP 104/62 02/24/24 14:53 BMI result Body Mass Index 24.6 Const General: cooperative, healthy appearing, no acute distress, well developed and alert Orientation/consciousness: patient oriented x3 HEENT Head: Yes normal to inspection Eyes General: appearance normal, both eyes and all related structures Neck Neck: Yes normal visual inspection Thyroid: Thyroid normal Chest Chest palpation & inspection: normal inspection of the chest and other (no puckering, dimpling, peau de orange, retraction, discharge, masses) Breast/axilla inspection: normal inspection of the breasts Breast/axilla palpation: normal palpation of the breasts Resp Effort & Inspection: normal respiratory effort GI Inspection: Yes normal to inspection Palpation (GI): Soft to palpation Rectal Exam - Female: deferred General: Yes bladder normal to palpation External Female Exam: normal external appearance and normal appearance of the urethra Speculum Exam - Vagina: normal appearance of the vagina, normal palpation and normal vaginal discharge Speculum Exam - Cervix: normal appearance of the cervix and normal palpation Bimanual exam- vagina & uterus: normal bimanual exam, normal palpation, uterine size normal, bladder normal to palpation, normal palpation, non-tender and Uterus displaced on the right Bimanual Exam- Adnexa, other: no masses Skin General skin exam: no rashes or lesions noted Rashes: no rashes Neuro General: patient oriented x3 Cognition (Neuro): normal cognition Extrem General: Yes normal to inspection Psych Attitude: cooperative Thought process: Normal thought process present Assessment & Plan Assessment & Plan (1) Encounter for well woman exam with routine gynecological exam: Code(s): Z01.419 - Encounter for gynecological examination (general) (routine) without abnormal findings Category: Medical (2) Dyspareunia, female: Code(s): N94.10 - Unspecified dyspareunia (3) Stress incontinence: Code(s): N39.3 - Stress incontinence (female) (male) Plan Discussed: Current recommendations for pap smears per ASCCP guidelines. Breast awareness and periodic breast exams. Maintain a healthy lifestyle including a well balanced diet and routine exercise. Pelvic ultrasound, cultures for GC chlamydia and BV. Follow up in person for test results. Use of positional changes, O rings, and lubricants reviewed. Stress incontinence-abdominal core exercises, Kegel exercises, pelvic floor therapy option. Patient verbalizes understanding and agrees to the plan of care. She was given opportunity to ask questions and all questions were answered to the best of my ability. RTO in one year for annual band salvager examination. This note is constructed using voice recognition software. While every effort has been made to ensure accuracy, manager scheduling errors may have been included. Orders: Orders CT NG by PCR Today N94.10 - Unspecified dyspareunia, N94.12 - Deep dyspareunia US pelvic and transvaginal Today N94.12 - Deep dyspareunia Bacterial Vaginosis Panel Today N94.10 - Unspecified dyspareunia, N94.12 - Deep dyspareunia Coding Level of Care Code Est Pt Prev Care 18-39y(54440) Diagnoses Encounter for well woman exam with routine gynecological exam Z01.419 Dyspareunia, female N94.10 Stress incontinence N39.3
[2024-02-24 14:53] VITALS: BP 104/62; BMI 24.6
== END 2024-02-24 15:32 | disposition home or self-care (01) ==
LOC: HO.HWS 14:29
PROVIDERS: PCP Internal Medicine; Visit Provider Advanced Practice Midwife
DX: Z01.419 Encounter for gynecological examination (general) (routine) without abnormal findings (principal); N94.10 Unspecified dyspareunia; N39.3 Stress incontinence (female) (male)
CPT/HCPCS: 99395

== ENCOUNTER 2024-02-24 15:38 | Outpatient (REF) | payer BC, SELFPAY | END 2024-02-24 15:39 | disposition home or self-care (01) | LOC: HO.LAB 15:38 | PROVIDERS: Visit Provider Advanced Practice Midwife | DX: Z13.89 Encounter for screening for other disorder (principal) ==

== ENCOUNTER 2024-02-25 13:20 | Outpatient (AMB) | payer BC, SELFPAY ==
--- NOTE | 2024-02-25 13:32 | MHC.PC.OV ---
Vital Signs 02/25/24 13:35 Height 5 ft 3 in Weight 140 lb BMI 24.8 BP 110/70 Blood Pressure Location Rt brachial Position Sitting Pulse 73 Pulse Source Pulse Oximeter Pulse Oximetry (%) 99 Oxygen Delivery Method Room Air Intake Visit Reasons: Flight incidence Allergies amoxicillin Allergy (Unknown, Verified 02/25/24 13:33) hives ethinyl estradiol [Ortho Tri-Cyclen LO (28)] Adverse Reaction (Unknown, Verified 02/25/24 13:33) chest pain norgestimate [Ortho Tri-Cyclen LO (28)] Adverse Reaction (Unknown, Verified 02/25/24 13:33) chest pain Medication List - Last Reconciled 02/25/24 by Angel Luis Hawkins MD acetaminophen 500 mg PO Q6H PRN Tobacco use date assessed: 02/25/24 Dental Screening Dental Screen Date: 02/25/24 Did you have a dental visit in the last 12 months?: Yes Did you have a dental problem in the last 6 months where you did not have access to dental care?: No Was dental information given to patient?: Patient has dentist HPI Flight incidence HPI Details Patient is a 38-year-old female came today to talk about an incidence and happened during the flight Patient says that she was sitting down and suddenly she had a feeling that she is going to threw up Followed by pinning of passing out Patient says that her blood pressure was 190 and her oxygen saturation dropped She was given some oxygen and was placed on floor supine eventually patient started to feel better It has happened before as well Day before the flight patient was also having severe migraine headache Sometimes she also lose control of her bowels during the episode She has appointment with the Neurology but it is not until March I have called personally Neurology office and appointment for this Wednesday with the patient She was notified Patient also have a needle phobia and is requesting assistance with that She was not able to do labs because of that I have sent lorazepam 0.5 mg tablet patient may take 1 or 2, 2 hours before the labs Patient is aware that she is not supposed to drive while taking this medication. She is feeling fine at this time I have also ordered Holter monitor to rule out any cardiac arrhythmias PFSH Medical History HPV test positive Surgical History Hx of wisdom tooth extraction Hx of LASIK Family History Maternal Aunt History of breast cancer Social History Housing: House Alcohol intake: current Alcohol intake frequency: holidays/special occasions only Patient Tobacco Use Status: Never used Tobacco e-Cigarette/Vaping Use: Never Used Second Hand Smoke Exposure: No service: No Current occupational status: employed Gender identity: Female Cognitive needs: No Hearing needs: No Vision needs: No Female Reproductive History Menstrual Age of Menarche: 12 Questionnaire PHQ-9 Over the last 2 weeks, how often have you been bothered by any of the following problems? 1. Little interest or pleasure in doing things: not at all 2. Feeling down, depressed, or hopeless: not at all 3. Trouble falling or staying asleep, or sleeping too much: not at all 4. Feeling tired or having little energy: not at all 5. Poor appetite or overeating: not at all 6. Feeling bad about yourself - or that you are a failure or have let yourself or your family down: not at all 7. Trouble concentrating on things, such as reading the newspaper or watching television: not at all 8. Moving or speaking so slowly that other people could have noticed. Or the opposite - being so fidgety or restless that you have been moving around a lot more than usual: not at all 9. Thoughts that you would be better off or of hurting yourself in some way: not at all Total score: 0 Depression Screening Interpretation: Negative Depression Screening Done: Yes 09886 - PHQ-9 Billing: Yes Source: Developed by Drs. Melo Calvillo, Anita Alexander, Hubert Oh and colleagues, with an educational rusty from [employer]. Thrive Questionnaire Date Thrive assessed: 02/25/24 I am a: Patient What is your living situation today?: I have a steady place to live Within the past 12 months, did the food you bought not last and you didn't have the money to get more?: Never true Within the past 12 months, did you worry whether your food would run out before you got money to buy more?: Never true Do you have trouble paying for medicines?: No Do you have trouble getting transportation to medical appointments?: No Do you have trouble paying your heating and electricity bill?: No Do you have trouble taking care of your child, family member or friend?: No Do you have trouble with day-to-day activities such as bathing, preparing meals, shopping, managing finances, etc.?: No Are you currently unemployed and looking for a job?: No Are you interested in more education?: No Please select the resources that you would like help with: Housing/Prison Currently or been in a relationship where the following occur: No concerns reported THRIVE Score: 0 AUDIT C Alcohol Use Questionnaire (AUDIT-C) 1. How often do you have a drink containing alcohol?: Monthly or less 2. How many drinks containing alcohol do you have on a typical day when you are drinking?: 1 or 2 3. How often do you have six or more drinks on one occasion?: Never Total Score: 1 Score Reviewed/Action Taken: Yes RANDI-7 AMB Questionnaire RANDI-7 Date RANDI - 7 assessed: 02/25/24 Feeling nervous, anxious, or on edge: 0 = Not at all Not being able to stop or control worryin = Not at all Worrying too much about different things: 0 = Not at all Trouble relaxin = Not at all Being so restless that it is hard to sit still: 0 = Not at all Becoming easily annoyed or irritable: 0 = Not at all Feeling afraid as if something awful might happen: 0 = Not at all Total RANDI-7 score (0-4 normal; 5-9 mild; 10-14 moderate; 15-21 severe): 0 Source: Developed by Drs. Melo Calvillo, Anita Alexander, Hubert Oh and colleagues, with an educational rusty from [employer]. RANDI-7 Assessment Billing RANDI-7 Assessment Tool: RANDI-7 Assessment 59389 Review of Systems Const Denies chills and Denies fever(s) ENT Denies epistaxis and Denies nasal discharge Card Denies chest pain Resp Denies chest congestion, Denies cough and Denies hemoptysis GI Denies diarrhea and Denies nausea Skin/Breast Denies rash Neuro Reports no additional complaints Psych Reports no additional complaints Endo Reports no additional complaints Physical exam (Primary Care) Vital Signs: Last Vital Signs Pulse 73 02/25/24 13:35 BP 110/70 02/25/24 13:35 Pulse Ox 99 02/25/24 13:35 Oxygen Delivery Method Room Air 02/25/24 13:35 BMI result Body Mass Index 24.8 Tobacco/Smoking Status: Tobacco use Status Tobacco use date assessed 02/25/24 02/25/24 13:37 Patient Tobacco Use Status Never used Tobacco 02/25/24 13:32 e-Cigarette/Vaping Use Never Used 02/25/24 13:32 PHQ-9: PHQ-9 Score PHQ-9: Total score 0 02/25/24 14:08 Depression Screening Interpretation: Negative Thrive Assessment: Date of Thrive Assessment Date Thrive assessed 02/25/24 02/25/24 13:37 Currently or been in a relationship where the following occur: No concerns reported Const General: cooperative, comfortable and no acute distress Orientation/consciousness: patient oriented x3 HENMT Head: Yes normocephalic Eyes General: appearance normal, both eyes and all related structures Neck Neck: Yes supple Resp Effort & Inspection: normal respiratory effort, no cough and no stridor Cardio Rhythm: regular rhythm Heart sounds: S1 normal heart sound present and S2 normal heart sound present Skin General skin exam: turgor normal Neuro General: patient oriented x3, tone normal and moves all extremities Extrem Right lower extremity: no edema Left lower extremity: no edema Assessment and Plan Assessment & Plan (1) Pre-syncope: Code(s): R55 - Syncope and collapse Plan Patient is a 38-year-old female came today to talk about an incidence and happened during the flight Patient says that she was sitting down and suddenly she had a feeling that she is going to threw up Followed by pinning of passing out Patient says that her blood pressure was 190 and her oxygen saturation dropped She was given some oxygen and was placed on floor supine eventually patient started to feel better It has happened before as well Day before the flight patient was also having severe migraine headache Sometimes she also lose control of her bowels during the episode She has appointment with the Neurology but it is not until March I have called personally Neurology office and appointment for this Wednesday with the patient She was notified Patient also have a needle phobia and is requesting assistance with that She was not able to do labs because of that I have sent lorazepam 0.5 mg tablet patient may take 1 or 2, 2 hours before the labs Patient is aware that she is not supposed to drive while taking this medication. She is feeling fine at this time I have also ordered Holter monitor to rule out any cardiac arrhythmias Orders: Orders ECG 3 day holter monitor Today R55 - Syncope and collapse Medications: New lorazepam Take 1 or 2 tablets, 2 hour before blood test 1 mg (2 x 0.5 mg) PO DAILY 1 day PRN 2 tabs 0RF anxiety Coding Level of Care Code Est Pt Level 4 (96054) Diagnoses Pre-syncope R55 Additional Codes RANDI-7 Assessment Billing - RANDI-7 Assessment Tool: RANDI-7 Assessment 32115 ([id number])
[2024-02-25 13:35] VITALS: BP 110/70; PULSE 73; O2SAT 99; BMI 24.8
== END 2024-02-25 14:13 | disposition home or self-care (01) ==
PROVIDERS: PCP Internal Medicine; Visit Provider Internal Medicine
DX: R55 Syncope and collapse (principal)
CPT/HCPCS: 99214

== ENCOUNTER 2024-03-01 14:08 | Outpatient (REF) | payer BC, SELFPAY ==
--- NOTE | ~2024-03-01 | US_ITS ---
EXAM: Pelvic Ultrasound CLINICAL INDICATION: Deep dyspareunia COMPARISON: Pelvic ultrasound March 13, 2019 TECHNIQUE: The pelvis was evaluated using transabdominal and transvaginal imaging. FINDINGS: The uterus measures 7.8 x 3.7 x 4.5 cm in longitudinal by AP by transverse dimension. The endometrial stripe measures 1.1 cm. There appears to be mildly mobile blood products/debris within the endometrium. There is a 6 mm simple appearing cyst abutting the posterior uterus. The left ovary measures approximately 4.2 x 2.2 x 3.7 cm and is normal. The right ovary measures approximately 3.3 x 1.6 x 1.6 cm and is also normal. There is no free fluid in the pelvis. US/US pelvic and transvaginal IMPRESSION: 1. Endometrial stripe measures 1.1 cm in thickness. There appears to be mildly mobile blood products/debris within the endometrium. Correlation with menstrual cycle recommended. 2. 6 mm simple appearing cyst abutting the posterior uterus. Electronically signed by: Jef Lau MD 03/17/2024 06:36 AM EDT
== END 2024-03-01 14:09 | disposition home or self-care (01) ==
LOC: HO.US 14:08
PROVIDERS: PCP Internal Medicine; Visit Provider Advanced Practice Midwife
DX: N94.12 Deep dyspareunia (principal)
CPT/HCPCS: 76830; 76856

== ENCOUNTER → 2024-03-03 13:27 | Outpatient (REF) | payer BC, SELFPAY ==
--- NOTE | 2024-03-03 13:30 | HM_ITS ---
* Total monitoring time 3 days. * Underlying rhythm is sinus with an average rate of 71/Min. * Rare supraventricular ectopy. * Isolated ventricular ectopic beat. * No sustained arrhythmias. * No significant pauses or AV blocks. * Patient marker used in association with sinus rhythm. * No diary events. MTDD
== END ==
LOC: HO.CARD 13:27
PROVIDERS: PCP Internal Medicine; Visit Provider Internal Medicine
DX: R55 Syncope and collapse (principal)
CPT/HCPCS: 93242

== ENCOUNTER → 2024-03-03 13:30 | Outpatient (BNV) | payer BC, SELFPAY | PROVIDERS: PCP Internal Medicine; Visit Provider Internal Medicine | DX: I47.10 Supraventricular tachycardia, unspecified (principal) | CPT/HCPCS: 93244 ==

== ENCOUNTER 2024-03-26 16:45 | Outpatient (REF) | payer BC, SELFPAY ==
--- NOTE | ~2024-03-26 | MR_ITS ---
EXAMINATION: MR BRAIN WITHOUT CONTRAST CLINICAL INFORMATION: Seizures COMPARISON: None TECHNIQUE: Multiplanar multisequence MR imaging of the brain was obtained without intravenous contrast. FINDINGS: There is no acute infarct on diffusion-weighted imaging. There is no intracranial hemorrhage on iron-sensitive imaging. No extra-axial collection or mass effect/herniation. Normal parenchymal signal characteristics. The hippocampi are symmetric in size, contour, and signal intensity, demonstrating no convincing imaging evidence of mesial temporal sclerosis. The temporal horns appear symmetric. No hydrocephalus. The ventricles are normal in morphology and size. The major flow voids at the skull base are preserved. The midline structures are normal. The cerebellar tonsils are normally positioned. The craniocervical junction is normal. Marrow signal is within normal limits. The visualized soft tissues are without significant abnormality. No signal abnormality within the paranasal sinuses or within the mastoid air cells. MR/MR head/brain wo con IMPRESSION: Unremarkable noncontrast MRI of the brain. No candidate structural epileptogenic lesion is identified. Electronically signed by: Kehinde Hines MD 03/28/2024 06:09 PM EDT
== END 2024-03-26 16:46 | disposition home or self-care (01) ==
LOC: HO.MRI 16:45
PROVIDERS: PCP Internal Medicine; Visit Provider Psychiatry & Neurology Neurology
DX: G40.909 Epilepsy, unspecified, not intractable, without status epilepticus (principal)
CPT/HCPCS: 70551

== ENCOUNTER 2024-03-31 15:33 | Outpatient (AMB) | payer BC, SELFPAY ==
--- NOTE | 2024-03-31 15:34 | A.OFFVIS_ITS ---
Vital Signs 03/31/24 15:37 BP 100/64 Intake Visit Reasons: US follow up Intake Note: pt c/o lump in right breast, had it drained in past Allergies amoxicillin Allergy (Unknown, Verified 02/25/24 13:33) hives ethinyl estradiol [Ortho Tri-Cyclen LO (28)] Adverse Reaction (Unknown, Verified 02/25/24 13:33) chest pain norgestimate [Ortho Tri-Cyclen LO (28)] Adverse Reaction (Unknown, Verified 02/25/24 13:33) chest pain HPI Comments Details: Patient is here today for pelvic ultrasound follow up history of dyspareunia, to day she reports her cycles have been increasingly heavier over the last 6 months. Cycles x5 days, heavy menstrual bleeding times 3/5, with cramping. She also reports her right breast has a lump in the area of her where a prior cyst was aspirated in 2020, currently has enlarged, it is nontender but concerning for her. [facility] Medical History HPV test positive Surgical History Hx of wisdom tooth extraction Hx of LASIK Family History Maternal Aunt History of breast cancer Social History Housing: House Alcohol intake: current Alcohol intake frequency: holidays/special occasions only Patient Tobacco Use Status: Never used Tobacco e-Cigarette/Vaping Use: Never Used Second Hand Smoke Exposure: No service: No Current occupational status: employed Gender identity: Female Cognitive needs: No Hearing needs: No Vision needs: No Female Reproductive History Menstrual Age of Menarche: 12 Review of Systems Const All systems reviewed & are unremarkable except as noted in HPI and below Reports no additional complaints Skin/Breast Reports system reviewed and no additional complaints, except as documented and Reports as per HPI Physical Exam Vital Signs: Last Vital Signs BP 100/64 03/31/24 15:37 Const General: cooperative, healthy appearing and no acute distress Chest Other: Right breast mass 2 cm round rubbery mobile, consistent with cystic mass located at medial aspect 1-2 o'clock adjacent to the areola Breast/axilla inspection: normal inspection of the breasts and normal inspection of the axillae Breast/axilla palpation: normal palpation of the breasts Skin General skin exam: no rashes or lesions noted Results Reviewed Results Reviewed: [address] [address] Ultrasound Report Signed Patient: Angela Lay MR#: [id number] : 1985 Acct:[id number] Age/Sex: 38 / F ADM Date: 03/01/24 Loc: HO.US Attending Dr: Yany Fam CNM Ordering Physician: Yany Fam CNM Date of Service: 03/01/24 Procedure(s): US pelvic and transvaginal Accession Number(s): [id number] cc: Angel Luis Hawkins MD; Yany Fam CNM~ EXAM: Pelvic Ultrasound CLINICAL INDICATION: Deep dyspareunia COMPARISON: Pelvic ultrasound March 13, 2019 TECHNIQUE: The pelvis was evaluated using transabdominal and transvaginal imaging. FINDINGS: The uterus measures 7.8 x 3.7 x 4.5 cm in longitudinal by AP by transverse dimension. The endometrial stripe measures 1.1 cm. There appears to be mildly mobile blood products/debris within the endometrium. There is a 6 mm simple appearing cyst abutting the posterior uterus. The left ovary measures approximately 4.2 x 2.2 x 3.7 cm and is normal. The right ovary measures approximately 3.3 x 1.6 x 1.6 cm and is also normal. There is no free fluid in the pelvis. US/US pelvic and transvaginal IMPRESSION: 1. Endometrial stripe measures 1.1 cm in thickness. There appears to be mildly mobile blood products/debris within the endometrium. Correlation with menstrual cycle recommended. 2. 6 mm simple appearing cyst abutting the posterior uterus. Electronically signed by: Jef Lau MD 03/17/2024 06:36 AM EDT Dictated By: Jef Lau MD Signed By: <Electronically signed by Jef Lau MD in OV> 03/17/24 0636 DD/ 1428 TD/TT: 03/01/24 1448 Agronomy Research Manager: Assessment & Plan Assessment & Plan (1) Breast mass, right: Code(s): N63.10 - Unspecified lump in the right breast, unspecified quadrant Category: Medical Qualifiers: Breast mass location: unspecified quadrant Qualified Code(s): N63.10 - Unspecified lump in the right breast, unspecified quadrant (2) Abnormal uterine bleeding (AUB): Code(s): N93.9 - Abnormal uterine and vaginal bleeding, unspecified Category: Medical (3) Encounter to discuss test results: Code(s): Z71.2 - Person consulting for explanation of examination or test findings Plan Discussed: Ultrasound findingsORDER #: [id number] US/US pelvic and transvaginal IMPRESSION: 1. Endometrial stripe measures 1.1 cm in thickness. There appears to be mildly mobile blood products/debris within the endometrium. Correlation with menstrual cycle recommended. 2. 6 mm simple appearing cyst abutting the posterior uterus. At the time of the study the patient reports she did not have her menstrual cycle. Plan a follow up EMB appointment. Plan diagnostic mammogram and ultrasound of right breast. Discussed consultation for breast surgeon, she would like to defer until after her follow up with me to further discuss. Advised to call sooner if there is any concerns. All of her questions and concerns were addressed to the best of my ability and shared decision making. She is agreeable to the plan of care. This note is constructed using voice recognition software. While every effort has been made to ensure accuracy, business planning director errors may have been included. Orders: Orders US breast RT complete 03/31/24 N63.10 - Unspecified lump in the right breast, unspecified quadrant MM tomosynthesis diagnostic RT 03/31/24 N63.10 - Unspecified lump in the right breast, unspecified quadrant, Z12.31 - Encounter for screening mammogram for malignant neoplasm of breast Coding Level of Care Code Est Pt Level 3 (69885) Diagnoses Mass of right breast, unspecified quadrant N63.10 Breast mass location: unspecified quadrant Abnormal uterine bleeding (AUB) N93.9 Encounter to discuss test results Z71.2
[2024-03-31 15:37] VITALS: BP 100/64
== END 2024-03-31 16:07 | disposition home or self-care (01) ==
LOC: HO.HWS 15:33
PROVIDERS: PCP Internal Medicine; Visit Provider Advanced Practice Midwife
DX: N63.10 Unspecified lump in the right breast, unspecified quadrant (principal); N93.9 Abnormal uterine and vaginal bleeding, unspecified; Z71.2 Person consulting for explanation of examination or test findings
CPT/HCPCS: 99213

== ENCOUNTER → 2024-03-31 15:33 | Outpatient (BNVA) | payer BC, SELFPAY | PROVIDERS: PCP Internal Medicine; Visit Provider Advanced Practice Midwife ==

== ENCOUNTER 2024-04-06 13:37 | Outpatient (REF) | payer BC, SELFPAY ==
--- NOTE | ~2024-04-06 | MM_ITS ---
EXAMINATION: MM DIAGNOSTIC DIGITAL BREAST TOMOSYNTHESIS, BILATERAL US BREAST LIMITED, RIGHT MAMMOGRAPHY: CLINICAL INFORMATION: Right breast palpable abnormality 1-2:00 adjacent to areola, history of cyst with aspiration in 2020. Due for yearly bilateral. COMPARISON: Mammography: 03/27/2021 right breast mammography and ultrasound. 07/26/2018 bilateral mammography. TECHNIQUE: Digital breast tomosynthesis is performed in both the craniocaudal and mediolateral oblique views along with computer-aided detection (CAD). Synthesized 2D images are generated from the tomosynthesis. In addition, full field 3-D right ML view was also obtained. FINDINGS: The breasts are extremely dense, which lowers the sensitivity of mammography (ACR BI-RADS breast composition Category d). Correlating with the palpable focus of concern in the right breast 1-2:00 axis, there is a circumscribed large isodense mass, most likely representing the patient's known previously drained cyst. There are several smaller circumscribed isodense masses throughout the right breast, also in keeping with known simple cysts. This will be evaluated with ultrasound. In the left breast there is a large retroareolar slightly lateral circumscribed mass consistent with known cyst. There are smaller rounded circumscribed nodules in the remainder of the breast. These are also consistent with benign entity such as cysts. ULTRASOUND: CLINICAL INFORMATION: Evaluate palpable abnormality 1-2:00 right breast, in region of known cyst, previously aspirated. COMPARISON: 04/02/2021 right cyst aspiration. TECHNIQUE: Targeted sonographic evaluation was performed using a high frequency linear transducer. Attention was given to the right breast in the palpable region 1-2 o'clock axis. Selected archived documentation. FINDINGS: RIGHT BREAST: -There are innumerable small simple cysts in the right breast. There is a dominant cyst in the 1-2 o'clock axis, 2 cm from the nipple, simple in appearance, measuring 2.7 x 2.7 x 1.5 cm. No internal echoes and good through transmission. This finding is benign. There are no suspicious findings. MM/MM tomosynthesis diagnostic BI IMPRESSION: -There are no findings suspicious for malignancy in either breast. -There are waxing and waning round and oval circumscribed masses in both breasts, consistent with known benign cysts. -Palpable focus corresponds to a 2.7 x 2.7 x 1.5 cm simple cyst spanning a 1-2 o'clock axis right breast, 2 cm from the nipple. Aspiration is offered for symptomatic relief if felt clinically warranted. -Otherwise, recommend the patient return to routine annual screening mammography at age 40. OVERALL ASSESSMENT: Mammography: BI-RADS 2 - Benign Findings Ultrasound: BI-RADS 2 - Benign Findings RECOMMENDATION: Mammo at 40 or earlier if clinically needed Electronically signed by: Colin Verdin MD 04/06/2024 05:06 PM EDT
== END 2024-04-06 13:38 | disposition home or self-care (01) ==
LOC: HO.MAMMO 13:37
PROVIDERS: PCP Internal Medicine; Visit Provider Advanced Practice Midwife
DX: N63.12 Unspecified lump in the right breast, upper inner quadrant (principal)
CPT/HCPCS: 76641; 77062; 77066

== ENCOUNTER → 2024-04-06 14:30 | Outpatient (BNV) | payer BC, SELFPAY | PROVIDERS: PCP Internal Medicine; Visit Provider Radiology Diagnostic Radiology | DX: R92.8 Other abnormal and inconclusive findings on diagnostic imaging of breast (principal) | CPT/HCPCS: 76641; 77062; 77066 ==

== ENCOUNTER → 2024-04-11 08:31 | Outpatient (BNVA) | payer BC, SELFPAY | PROVIDERS: PCP Internal Medicine; Visit Provider Advanced Practice Midwife | DX: N92.0 Excessive and frequent menstruation with regular cycle (principal); R93.89 Abnormal findings on diagnostic imaging of other specified body structures | CPT/HCPCS: 58100; 81025 ==

== ENCOUNTER 2024-04-11 08:40 | Outpatient (AMB) | payer BC, SELFPAY ==
--- NOTE | 2024-04-11 08:39 | MHC.OFFVIS ---
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 Currently has a menstrual cycle today which is heavy. Following procedure patient admitted that she had an attempted IUD insertion in the past which could not be completed do the similar findings. She denies any prior instrumentation including AB care. Has a current work up this year for near syncope episodes followed by Neurology. [facility] Medical History HPV test positive Surgical History Hx of wisdom tooth extraction Hx of LASIK Family History Maternal Aunt History of breast cancer Social History Housing: House Alcohol intake: current Alcohol intake frequency: holidays/special occasions only Patient Tobacco Use Status: Never used Tobacco e-Cigarette/Vaping Use: Never Used Second Hand Smoke Exposure: No service: No Current occupational status: employed Gender identity: Female Cognitive needs: No Hearing needs: No Vision needs: No Female Reproductive History Menstrual Age of Menarche: 12 Date of last menstrual period: 04/09/24 Review of Systems Const All systems reviewed & are unremarkable except as noted in HPI and below Physical Exam Vital Signs: Last Vital Signs BP 102/60 04/11/24 08:44 BMI result Body Mass Index 24.8 Const General: cooperative, healthy appearing and no acute distress Orientation/consciousness: patient oriented x3 GI Inspection: Yes normal to inspection Palpation (GI): Soft to palpation and Other GI palpation findings present (Nontender) Rectal Exam - Female: visual inspection normal General: Yes bladder normal to palpation External Female Exam: normal appearance of the urethra Speculum Exam - Vagina: normal appearance of the vagina, normal palpation, normal vaginal discharge and vaginal bleeding Speculum Exam - Cervix: normal appearance of the cervix and normal palpation Bimanual exam- vagina & uterus: normal bimanual exam, normal palpation, uterine size normal, bladder normal to palpation, normal palpation, uterine shape normal and non-tender Bimanual Exam- Adnexa, other: normal adnexae OB/external & speculum: vaginal bleeding Neuro General: patient oriented x3 Office Procedures Endometrial Biopsy Details: The patient is here today for an endometrial biopsy due to AUB to rule out any pathology including atypical, hyperplasia or cancer cells of the uterus. She was counseled regarding anticipatory guidance for the procedure including the risks for pain, infection, bleeding, perforation, potential injury to the tissues may include the cervix, uterus, tubes, bladder and bowels. These injuries may include further treatment and evaluation including surgery, blood transfusions, antibiotics, hospitalizations and anesthesia. Permanent injury and scarring can occur. She was consented for the procedure, and the consent forms were signed. She is agreeable to have the procedure today. All questions were answered. Endometrial Biopsy Procedure: The patient was placed in the dorsal lithotomy position and a sterile speculum inserted. Using aseptic technique for the procedure. The cervix was cleansed with Betadine x 3 swabs. A single toothed tenaculum was placed on the cervix for stabilization, the cervix internal os was stenotic, unable to advance a graduated dilator, due to the patient feeling like she was going to pass out the procedure was discontinued. The patient tolerate the procedure well and was in good condition when leaving the department. Endometrial Biopsy Post Procedure Care: Nothing in the vagina including: tampons, douching or intimacy until all the bleeding has subsided. There may be some post procedure bleeding for several days, this bleeding is usually light and may turn to a light brown or pink color. Mild cramps may occurs. Nothing in the vaginal including: tampons, douching, or intimacy until all the bleeding has subsided. You may take an over the counter mild analgesic such as Tylenol or Advil (if no allergies) per the manufactures recommendation on dosing, frequency, and follow the directions completely. Call the office if any: fever (over 100.4), flu like symptoms, abdominal pain (worse than cramping), foul smelling, infected appearing vaginal discharge, or heavy bleeding. If indicated: Use condoms to prevent and STI's, and only after the bleeding has stopped completely. Patient was informed she would need to have a hysteroscopy procedure to evaluate the uterine lining for any pathology. She will schedule a consult with Dr. Adams. This note is constructed using voice recognition software. While every effort has been made to ensure accuracy, law office manager errors may have been included. [id number] Biopsy Results AMB Test Urine AMB Test Urine Negative Last Edit by JT Kay on 04/11/24 08:47 Results Reviewed Results Reviewed: Laboratory Last Values Tst Clinic Negative 04/11/24 08:[address] [address] Ultrasound Report Signed Patient: Angela Lay MR#: [id number] : 1985 Acct:[id number] Age/Sex: 38 / F ADM Date: 03/01/24 Loc: .[place] Attending Dr: Yany Fam CNM Ordering Physician: Yany Fam CNM Date of Service: 03/01/24 Procedure(s): US pelvic and transvaginal Accession Number(s): [id number] cc: Angel Luis Hawkins MD; Yany Fam CNM~ EXAM: Pelvic Ultrasound CLINICAL INDICATION: Deep dyspareunia COMPARISON: Pelvic ultrasound March 13, 2019 TECHNIQUE: The pelvis was evaluated using transabdominal and transvaginal imaging. FINDINGS: The uterus measures 7.8 x 3.7 x 4.5 cm in longitudinal by AP by transverse dimension. The endometrial stripe measures 1.1 cm. There appears to be mildly mobile blood products/debris within the endometrium. There is a 6 mm simple appearing cyst abutting the posterior uterus. The left ovary measures approximately 4.2 x 2.2 x 3.7 cm and is normal. The right ovary measures approximately 3.3 x 1.6 x 1.6 cm and is also normal. There is no free fluid in the pelvis. US/US pelvic and transvaginal IMPRESSION: 1. Endometrial stripe measures 1.1 cm in thickness. There appears to be mildly mobile blood products/debris within the endometrium. Correlation with menstrual cycle recommended. 2. 6 mm simple appearing cyst abutting the posterior uterus. Electronically signed by: Jef Lau MD 03/17/2024 06:36 AM EDT RP Dictated By: Jef Lau MD Signed By: <Electronically signed by Jef Lau MD in OV> 03/17/24 0636 DD/ 1428 TD/TT: 03/01/24 1448 Codifier: Assessment & Plan Assessment & Plan (1) Heavy menstrual bleeding: Code(s): N92.0 - Excessive and frequent menstruation with regular cycle Qualifiers: Menorrhagia type: with regular cycle Qualified Code(s): N92.0 - Excessive and frequent menstruation with regular cycle (2) Abnormal finding on ultrasound: Code(s): R93.89 - Abnormal findings on diagnostic imaging of other specified body structures Plan See procedure notes. Orders: Orders AMB HCG Urine Test Today N93.9 - Abnormal uterine and vaginal bleeding, unspecified Coding Level of Care Code Procedure Only Diagnoses Menorrhagia with regular cycle N92.0 Menorrhagia type: with regular cycle Abnormal finding on ultrasound R93.89 CPT Codes Endometrial Biopsy - CPT: 13620-Bzsovgiehiy Biopsy ([id number]) Comment EMB in completed
[2024-04-11 08:44] VITALS: BP 102/60; BMI 24.8
[2024-04-11 09:30] VITALS: BP 96/58
== END 2024-04-11 09:29 | disposition home or self-care (01) ==
PROVIDERS: PCP Internal Medicine; Visit Provider Advanced Practice Midwife
DX: N93.9 Abnormal uterine and vaginal bleeding, unspecified (principal); N92.0 Excessive and frequent menstruation with regular cycle; R93.89 Abnormal findings on diagnostic imaging of other specified body structures
CPT/HCPCS: 58100

== ENCOUNTER 2024-05-11 10:20 | Outpatient (AMB) | payer BC, SELFPAY ==
--- NOTE | 2024-05-11 10:22 | MHC.OFFVIS ---
Vital Signs 05/11/24 10:31 Height 5 ft 3 in Weight 137 lb BMI 24.3 Intake Visit Reasons: Solitary cyst on Rt breast Intake Note: This patient presents for Solitary cyst on Rt breast. Pt c/o; reports occasional right breast pain, reports she feels a lump on right breast, reports no discharge. 04/06/2024:MM Diag Breast US Drapery Head Former Required: No Heading Machine Operator: Heading Machine Operator Present (Stephany-JT) Accompanied by: Self / Same As Patient Allergies amoxicillin Allergy (Unknown, Verified 05/11/24 10:33) hives ethinyl estradiol [Ortho Tri-Cyclen LO (28)] Adverse Reaction (Unknown, Verified 05/11/24 10:33) chest pain norgestimate [Ortho Tri-Cyclen LO (28)] Adverse Reaction (Unknown, Verified 05/11/24 10:33) chest pain Medication List - Last Reconciled 05/11/24 by Pankaj Chaves MD acetaminophen 500 mg PO Q6H PRN lorazepam 1 mg (2 x 0.5 mg) PO DAILY PRN 1 day HPI HPI Solitary cyst on Rt breast: Details: [age] year old female referred for a cyst on the right breast. She says she had undergone aspiration of a cyst on the right breast about 2 years ago. She had an ultrasound and mammogram done last month showing this circumscribed isodense mass at the 1 to 2 o'clock position of the right breast consistent with her previously aspirated benign cyst. She also has other smaller cysts throughout the right breast consistent with simple cysts. The dominant cyst is measured to be 2.7 x 2.7 x 1.5 cm. She does state that she feels this dominant cyst on the right side. She occasionally notices some discomfort. She states that this palpable cyst feels much smaller than it was 2 years ago. Her menarche was at age of 12. She has never been . She has menstrual periods. she denies a strong family history of breast cancer. [facility] Medical History (Updated 05/11/24 @ 10:51 by Pankaj Chaves MD) Benign breast cyst in female Syncopal episodes HPV test positive Surgical History Hx of wisdom tooth extraction Hx of LASIK Family History Maternal Aunt History of breast cancer Social History Housing: House Alcohol intake: current Alcohol intake frequency: holidays/special occasions only Patient Tobacco Use Status: Never used Tobacco e-Cigarette/Vaping Use: Never Used Second Hand Smoke Exposure: No service: No Current occupational status: employed Gender identity: Female Cognitive needs: No Hearing needs: No Vision needs: No Female Reproductive History Menstrual Age of Menarche: 12 Total pregnancies: 0 Review of Systems Const Denies chills and Denies fever(s) Card Denies chest pain, Denies dyspnea and Denies dyspnea on exertion Resp Denies cough, Denies dyspnea and Denies dyspnea on exertion GI Denies hematochezia and Denies change in bowel habits Denies hematuria Musc Denies back pain and Denies limited range of motion Neuro Denies focal weakness and Denies convulsions Psych Denies depression and Denies mood swings Physical Exam Vital Signs: BMI result Body Mass Index 24.3 Const General: comfortable and no acute distress Orientation/consciousness: patient oriented x3 Neck Neck: Yes no lymphadenopathy Chest Other: Vague mass on the medial aspect of the right breast about 1.5 cm, no axillary lymphadenopathy Resp Auscultation: clear to auscultation bilaterally Cardio Rhythm: regular rhythm GI Palpation (GI): Soft to palpation, nontender and no guarding Neuro General: patient oriented x3 Assessment & Plan Assessment & Plan (1) Benign breast cyst in female: Code(s): N60.09 - Solitary cyst of unspecified breast Category: Medical Plan: She has had this benign breast cysts as described above on the right breast I explained to her her options. I told her that if these are bothering her, I can schedule her for aspiration under ultrasound guidance. Another option is surgical cyst excision. I did tell her that proceeding with surgical excision may affect imaging studies of her breast in the future. I recommended that if the cyst is not bothering her, I would continue with surveillance with imaging studies. She is to undergo mammogram every 1-2 years. She denies this seemed to be a elevated risk for breast cancer based on family history She says that she will continue with imaging studies for now. She is holding off on any surgical intervention. She is welcome to follow up in the office as needed for any concerns down the line. Coding Level of Care Code New Pt Level 3 (62498) Diagnoses Benign breast cyst in female N60.09
[2024-05-11 10:31] VITALS: BMI 24.3
== END 2024-05-11 10:45 | disposition home or self-care (01) ==
PROVIDERS: PCP Internal Medicine; Visit Provider Surgery
DX: N60.09 Solitary cyst of unspecified breast (principal)
CPT/HCPCS: 99203

== ENCOUNTER → 2024-05-11 10:20 | Outpatient (BNVA) | payer BC, SELFPAY | PROVIDERS: PCP Internal Medicine; Visit Provider Surgery ==

== ENCOUNTER 2024-06-13 07:31 | Outpatient (AMB) | payer BC, SELFPAY ==
[2024-06-13 07:32] VITALS: BP 100/58; BMI 24.2
--- NOTE | 2024-06-13 07:32 | MHC.OFFVIS ---
Vital Signs 06/13/24 07:32 Height 5 ft 3 in Weight 136 lb 10.986 oz BMI 24.2 BP 100/58 L Intake Visit Reasons: Consult for Hysteroscopy Technical Support Associate Required: No Information Interpreted: non-clinical & clinical Physical Therapy Manager: Physical Therapy Manager Present Accompanied by: Self / Same As Patient Allergies amoxicillin Allergy (Unknown, Verified 06/13/24 07:37) hives ethinyl estradiol [Ortho Tri-Cyclen LO (28)] Adverse Reaction (Unknown, Verified 06/13/24 07:37) chest pain norgestimate [Ortho Tri-Cyclen LO (28)] Adverse Reaction (Unknown, Verified 06/13/24 07:37) chest pain Is last menstrual period known: Yes Last menstrual period: 06/01/24 Post menopausal: No Patient : No Do you need a note to return to daycare/school/sports/work: Yes (for surgery on wednesday) HPI Comments Details: The patient is presenting referred from Yany Fam CNM complaining of heavy menstrual cycles associated with passage of blood clots and pelvic cramping the patient was unable to tolerate endometrial biopsy in the office. The following workup was done: BV panel/GC and chlamydia were negative Pelvic ultrasound showed the following: The uterus measures 7.8 x 3.7 x 4.5 cm in longitudinal by AP by transverse dimension. The endometrial stripe measures 1.1 cm. There appears to be mildly mobile blood products/debris within the endometrium. There is a 6 mm simple appearing cyst abutting the posterior uterus. The left ovary measures approximately 4.2 x 2.2 x 3.7 cm and is normal. The right ovary measures approximately 3.3 x 1.6 x 1.6 cm and is also normal. There is no free fluid in the pelvis. Last co testing in 10/07 was negative PFSH Medical History Benign breast cyst in female Syncopal episodes HPV test positive Surgical History Hx of wisdom tooth extraction Hx of LASIK Family History Maternal Aunt History of breast cancer Social History Housing: House Alcohol intake: current Alcohol intake frequency: holidays/special occasions only Patient Tobacco Use Status: Never used Tobacco e-Cigarette/Vaping Use: Never Used Second Hand Smoke Exposure: No service: No Current occupational status: employed Gender identity: Female Cognitive needs: No Hearing needs: No Vision needs: No Female Reproductive History Menstrual Age of Menarche: 12 Date of last menstrual period: 06/01/24 Total pregnancies: 2 Full term: 2 Review of Systems Card Reports as per HPI and Reports no additional complaints Resp Reports as per HPI and Reports no additional complaints GI Reports as per HPI and Reports no additional complaints Reports as per HPI Physical Exam Vital Signs: Last Vital Signs BP 100/58 L 06/13/24 07:32 BMI result Body Mass Index 24.2 Const General: cooperative, healthy appearing and comfortable Chest Chest palpation & inspection: normal inspection of the chest and normal palpation of entire chest wall Breast/axilla inspection: normal inspection of the breasts and normal inspection of the axillae Breast/axilla palpation: normal palpation of the breasts, normal palpation of the axillae and no axillary lymphadenopathy Resp Effort & Inspection: normal respiratory effort Auscultation: clear to auscultation bilaterally Percussion: percussion normal Cardio Palpation: normal PMI Rate: regular rate Rhythm: regular rhythm Heart sounds: no murmurs and no rubs Peripheral pulses: Peripheral pulses 2+ throughout GI Inspection: Yes normal to inspection Palpation (GI): Soft to palpation, nontender, no guarding, not rigid and No hepatosplenomegaly present Percussion: Yes normal to percussion Auscultation: normal bowel sounds Rectal Exam - Female: deferred Assessment & Plan Assessment & Plan (1) Abnormal uterine bleeding (AUB): Code(s): N93.9 - Abnormal uterine and vaginal bleeding, unspecified Category: Medical Plan: CBC, TSH, prolactin, HCG ordered. Discussed with the patient the different causes of abnormal bleeding including thyroid disorders, uterine and ovarian pathology, endometrial hyperplasia, carcinoma and other potential causes. Discussed with the patient the work up including CBC (to r/o anemia), TSH, prolactin, pelvic Ultrasound, endometrial sampling to r/o endometrial pathology. Recommended to the patient that the next step is an endometrial sampling via hysteroscopy D&C possible polypectomy versus endometrial biopsy to r/o endometrial pathology including hyperplasia or cancer. All the pros and cons risks and benefits of each approach were discussed with the patient, endometrial biopsy being less invasive, office procedure with less sensitivity and inability diagnose a polyp and removal versus hysteroscopy done under anesthesia more invasive more sensitive to endometrial cancer and possibility of diagnosing and endometrial polyp with the possibility of polypectomy. All questions were answered pt verbalized understanding and decided to proceed with hysteroscopy D&C possible polypectomy/myomectomy. Discussed with the patient the procedure , all benefits and risks including but not limited to inability to complete the procedure , insufficient endometrial tissue for a complete evaluation of the endometrial cavity , bleeding, infection, possible need for blood transfusion with all its risk ( HIV,syphilis, Hepatitis, anaphylaxis shock, others..), injury to bladder, rectum, possible need for laparoscopy/laparotomy or hysterectomy. The patient verbalized understanding and signed the consent. Instructions given the patient to stay NPO after midnight the day prior to the procedure and to take only the specific medication (s) discussed the morning of the surgical procedure and to schedule a 2 week postoperative appointment Orders: Orders Prolactin Today N93.9 - Abnormal uterine and vaginal bleeding, unspecified Complete Blood Count no Diff Today N93.9 - Abnormal uterine and vaginal bleeding, unspecified TSH reflex Free T4 Today N93.9 - Abnormal uterine and vaginal bleeding, unspecified HCG Quantitative Today N93.9 - Abnormal uterine and vaginal bleeding, unspecified Coding Level of Care Code Est Pt Level 3 (93366) Diagnoses Abnormal uterine bleeding (AUB) N93.9
== END 2024-06-13 07:51 | disposition home or self-care (01) ==
LOC: HO.HWS 07:31
PROVIDERS: PCP Internal Medicine; Visit Provider Obstetrics & Gynecology
DX: N93.9 Abnormal uterine and vaginal bleeding, unspecified (principal)
CPT/HCPCS: 99213

== ENCOUNTER → 2024-06-13 07:31 | Outpatient (BNVA) | payer BC, SELFPAY | PROVIDERS: PCP Internal Medicine; Visit Provider Obstetrics & Gynecology ==

== ENCOUNTER 2024-06-24 08:42 | Outpatient (REF) | payer BC, SELFPAY ==
[2024-06-24 09:20] LABS: MANUAL DIFF FLAG NO
[2024-06-24 10:20] LABS: Hematocrit 38.2 % (37.0-47.0); Hemoglobin 12.7 g/dl (12.0-16.0); Mean Corpuscular HGB Conc 33.2 g/dl (31.0-35.0); Mean Corpuscular Volume 81.1 fL (80.0-98.0); Mean Platelet Volume 11.3 fL (9.4-12.3); Platelet Count 195 X10*3/uL (160-400); Red Blood Count 4.71 X10*6/uL (4.20-5.50); White Blood Count 6.6 X10*3/uL (4.8-10.8)
[2024-06-24 10:21] LABS: Basophils Absolute Auto 0.1 X10*3/uL (0.0-0.2); Basophils Percent Auto 0.8 % (0-2); Eosinophils Absolute Auto 0.1 X10*3/uL (0.0-0.4); Eosinophils Percent Auto 0.9 % (0-4); Hematocrit 38.5 % (37.0-47.0); Hemoglobin 12.7 g/dl (12.0-16.0); Imm Gran Abs Auto 0.03 X10*3/uL (0.00-0.03); Imm Gran Pct Auto 0.5 % (0.0-0.4); Lymphocytes Absolute Auto 1.8 X10*3/uL (1.2-4.9); Lymphocytes Percent Auto 27.1 % (20-40); Mean Corpuscular Hemoglobin 26.7 pg (27.0-33.0); Mean Corpuscular Volume 81.1 fL (80.0-98.0); Mean Platelet Volume 10.7 fL (9.4-12.3); Monocytes Absolute Auto 0.4 X10*3/uL (0.1-1.2); Monocytes Percent Auto 5.9 % (2-11); Neutrophils Absolute Auto 4.3 x10*3/uL (2.0-8.3); Neutrophils Percent Auto 64.8 % (45-73); Platelet Count 192 X10*3/uL (160-400); Red Blood Count 4.75 X10*6/uL (4.20-5.50); White Blood Count 6.6 X10*3/uL (4.8-10.8)
[2024-06-24 11:01] LABS: Alanine Aminotransferase 17 U/L (0-31); Albumin Level 4.5 g/dL (3.5-5.0); Alkaline Phosphatase 74 U/L (39-117); Anion Gap 13 (12-20); Aspartate Amino Transferase 20 U/L (5-31); Bilirubin Total 0.6 mg/dL (0.0-1.0); Blood Urea Nitrogen 9 mg/dL (9-16); Calcium 9.6 mg/dL (8.4-10.2); Carbon Dioxide 23 mmol/L (22-29); Chloride 107 mmol/L (96-108); Cholesterol 239 mg/dL (<200); Estimated Glomerular Filt Rate > 60; Glucose Fasting 94 mg/dL (60-99); HDL Cholesterol 60 mg/dL (>40); LDL Cholesterol Calculated 163 mg/dL (<100); Potassium 3.7 mmol/L (3.3-5.1); Sodium 139 mmol/L (135-145); Total Protein 7.5 g/dL (6.5-8.0); Triglycerides 82 mg/dL (<150)
[2024-06-24 11:08] LABS: HCG Quantitative < 2 mIU/mL; TSH reflex Free T4 1.62 uIU/mL (0.32-4.0)
[2024-06-24 11:17] LABS: TSH reflex Free T4 1.59 uIU/mL (0.32-4.0)
[2024-06-26 03:48] LABS: Prolactin 13.8 ng/mL
== END 2024-06-24 08:43 | disposition home or self-care (01) ==
LOC: HO.LAB 08:42
PROVIDERS: Absent Provider Obstetrics & Gynecology; PCP Internal Medicine; Visit Provider Internal Medicine
DX: Z00.01 Encounter for general adult medical examination with abnormal findings (principal); G43.019 Migraine without aura, intractable, without status migrainosus; R55 Syncope and collapse; R42 Dizziness and giddiness; N93.9 Abnormal uterine and vaginal bleeding, unspecified
CPT/HCPCS: 36415; 80053; 80061; 84146; 84443; 84702; 85025; 85027

== ENCOUNTER 2024-06-30 09:21 | Day surgery (SDC) | payer BC, SELFPAY ==
--- NOTE | 2024-06-28 11:49 | HO.ANESPROP2 ---
Documented by User: Smita Garcia NP 06/29/24 14:11 HPI - Anesthesia Eval Consult details Narrative: 38yo F for D&C Hysteroscopy,possible myomectomy,possible polypectomy, Complex partial seizure Recent neuro w/u with nml eeg, started on Keppra. Optimized for procedure per 06/29/24 neuro office visit. PMFSH Active Problems Active Problems: All Active Problems Benign breast cyst in female (Acute) Cyst of right breast (Acute) Syncopal episodes (Acute) Abnormal uterine bleeding (AUB) (Acute) Breast mass, right (Acute) Encounter for well woman exam with routine gynecological exam (Acute) Annual physical exam (Acute) Skin cancer screening (Acute) Lightheadedness (Acute) Cold sweat (Acute) Pre-syncope (Acute) Migraine headache without aura (Acute) Contusion of hand, right (Acute ~10/02/22) Upper respiratory tract infection (Acute) Chronic constipation (Acute) Change in bowel habit (Acute) Abdominal bloating (Acute) Encounter for general adult medical examination with abnormal findings (Acute) Abnormal cervix finding (Acute) Metrorrhagia (Acute) Encounter for annual routine gynecological examination (Acute) Breast lump on right side at 11 o'clock position (Acute) HSV-1 (herpes simplex virus 1) infection (Acute) Lesion of cervix (Acute) Past Medical History Medical History Anxiety Benign breast cyst in female Syncopal episodes HPV test positive Family History Family History Maternal Aunt History of breast cancer Surgical History Surgical History Hx of biopsy Hx of wisdom tooth extraction Hx of LASIK Social History Social History Housing: House Alcohol intake: current Alcohol intake frequency: holidays/special occasions only Patient Tobacco Use Status: Never used Tobacco e-Cigarette/Vaping Use: Never Used Second Hand Smoke Exposure: No Use of substances other than those prescribed or required for medical reasons: No Are you DNR?: No Advance Directives: No Advance Directives Information Provided: Yes Recently lost weight without trying: No service: No Current occupational status: employed Gender identity: Female Cognitive needs: No Hearing needs: No Vision needs: No Meds Allergies Allergy/AdvReac Type Severity Reaction Status Date / Time amoxicillin Allergy Unknown hives Verified 06/30/24 09:36 ethinyl estradiol AdvReac Unknown chest pain Verified 06/30/24 09:36 [Ortho Tri-Cyclen LO (28)] norgestimate AdvReac Unknown chest pain Verified 06/30/24 09:36 [Ortho Tri-Cyclen LO (28)] Assessment and Plan Assessment Anesthesia Assessment: Chart Reviewed Documented by User: Delfina Arce MD 06/30/24 09:53 PMFSH Past Medical History Medical History Anxiety Benign breast cyst in female Syncopal episodes HPV test positive Family History Family History Maternal Aunt History of breast cancer Family history of problems with anesthesia: No Surgical History Surgical History Hx of biopsy Hx of wisdom tooth extraction Hx of LASIK History of Problems with Anesthesia: No Social History Social History Housing: House Alcohol intake: current Alcohol intake frequency: holidays/special occasions only Patient Tobacco Use Status: Never used Tobacco e-Cigarette/Vaping Use: Never Used Second Hand Smoke Exposure: No Use of substances other than those prescribed or required for medical reasons: No Are you DNR?: No Advance Directives: No Advance Directives Information Provided: Yes Recently lost weight without trying: No service: No Current occupational status: employed Gender identity: Female Cognitive needs: No Hearing needs: No Vision needs: No Meds Allergies Allergy/AdvReac Type Severity Reaction Status Date / Time amoxicillin Allergy Unknown hives Verified 06/30/24 09:36 ethinyl estradiol AdvReac Unknown chest pain Verified 06/30/24 09:36 [Ortho Tri-Cyclen LO (28)] norgestimate AdvReac Unknown chest pain Verified 06/30/24 09:36 [Ortho Tri-Cyclen LO (28)] Exam Airway Mallampati Class: II TM Dist: >3cm Neck ROM: Full Heart: rrr Lungs: cta Assessment and Plan Assessment Anesthesia Assessment: Anesthesia Plan Discussed Final Anesthetic Review Family History of Problems with Anesthesia: No History of Problems with Anesthesia: No NPO: Yes ASA Class: III (extreme anxiety) Final Preanesthetic Review: No Changes in Pt Med Stat, Meds/Allgs Chart Reviewed, Consent Obtained/Reviewed and Anes Risks/Benef Reviewed Patient Risk: Low Procedure Risk: Low Anesthetic Plan Anesthetic Plan: GA Disposition: Standard PACU
[2024-06-28 11:50] VITALS: BMI 24.2
[2024-06-30] VITALS (9 sets, daily range): BP systolic 91–104; BP diastolic 55–64; PULSE 57–92; RESP 15–18; TEMP 36.6–37.2; O2SAT 98–100; BMI 23.4
[2024-06-30 09:47] LABS: UPreg QC Valid YES; Urine Pregnancy NEGATIVE (NEGATIVE)
[2024-06-30] MEDS: LORazepam 0.5 MG TABLET PO (09:48)
--- NOTE | 2024-06-30 10:32 | MHC.SHP ---
Pre-Procedural Eval Section A - 24 Hr Update-Section A only Date of Service: 06/30/24 The patient is an INPATIENT: No Changes since office visit: No Cold of Flu in the past 2 weeks, No New Medical Problems, No Changes in Medication and No Patient answered all questions The patient has been examined within 24 hours of the surgical procedure. The History & Physical has been completed within 30 days and I have reviewed it.: Yes Section B - Complete if H&P > 30 days Chief Complaint: Abnormal uterine and vaginal bleeding, unspecified Allergies: Allergies Allergy/AdvReac Type Severity Reaction Status Date / Time amoxicillin Allergy Unknown hives Verified 06/30/24 09:36 ethinyl estradiol AdvReac Unknown chest pain Verified 06/30/24 09:36 [Ortho Tri-Cyclen LO (28)] norgestimate AdvReac Unknown chest pain Verified 06/30/24 09:36 [Ortho Tri-Cyclen LO (28)] Plan Diagnosis/Plan: Unchanged I have reviewed the history and physical and performed a pertinent physical examination on my patient. No changes have occurred unless specified. Time Spent With Patient Time: Total time managing care of this patient today ____ minutes.
[2024-06-30] MEDS: Lactated Ringers 1,000 ML 100 ML IVCONT (10:33)
--- NOTE | 2024-06-30 11:53 | P.OP_ITS ---
Operative Note Operative Note Date of Service: 06/30/24 Narrative: Preop Diagnosis: Abnormal uterine bleeding Operation: Diagnostic Hysteroscopy, Dilataion & Curettage Post Op Diagnosis: Normal endometrial and endocervical cavity, no evidence of pathology QBL: Minimal Anesthesia: GLMA Surgeon: Cameron Adams MD Product Analyst: None Complication: None Pathology: Endometrial Scrapings Procedure: The patient was put in the dorsal lithotomy position, scrubbed, and draped in the usual manner. A sterile speculum was inserted in the patient's vagina. The anterior lip of the cervix was grasped with a single tooth tenaculum. The cervix was dilated up to 5 mm, then the scope was inserted in the patient's uterus. Inspection revealed normal endocervical & endometrial cavity with no evidence of pathology. The scope was taken out of the uterine cavity , then sharp curetting was carried on with no complications. At the end of the procedure, all instruments were taken out of the patient uterine and vaginal cavity. The single tooth tenaculum was removed and homeostasis was assured using pressure. The patient tolerated the procedure well and was transferred to the PACU in a stable condition.
--- NOTE | 2024-06-30 11:53 | PM.OP ---
Brief Operative Note Date of Service: 06/30/24 Pre-op diagnosis: Abnormal uterine bleeding Post-op diagnosis: same (Normal endometrial cavity) Procedure: Hysteroscopy D&C Surgeon: Cameron Adams MD Anesthesia: GLMA Was an Transportation Logistics Internship used for this Procedure?: No Estimated blood loss (mL): 0 Pathology: other (Endometrial Scrapping. ) Condition: stable Disposition: PACU
== END 2024-06-30 14:18 | disposition home or self-care (01) ==
PROVIDERS: PCP Internal Medicine; Visit Provider Obstetrics & Gynecology
PROC: 0UDB8ZZ Extraction of Endometrium, Via Natural or Artificial Opening Endoscopic (ICD-10-PCS; CPT 58558; principal; 2024-06-30 11:30)
DX: N93.9 Abnormal uterine and vaginal bleeding, unspecified (principal); N85.8 Other specified noninflammatory disorders of uterus; N60.09 Solitary cyst of unspecified breast; R55 Syncope and collapse; Z88.1 Allergy status to other antibiotic agents; Z88.8 Allergy status to other drugs, medicaments and biological substances; Z79.899 Other long term (current) drug therapy
CPT/HCPCS: 58558; 81025; 88305; J1885; J2003; J2405; J2704; J3010

== ENCOUNTER → 2024-06-30 09:21 | Outpatient (BNV) | payer BC, SELFPAY | PROVIDERS: PCP Internal Medicine; Visit Provider Obstetrics & Gynecology | DX: N93.9 Abnormal uterine and vaginal bleeding, unspecified (principal) | CPT/HCPCS: 58558 ==

== ENCOUNTER 2024-07-20 10:25 | Outpatient (AMB) | payer BC, SELFPAY ==
--- NOTE | 2024-07-20 10:27 | MHC.OFFVIS ---
Intake Visit Reasons: post op In Store Demonstrator: In Store Demonstrator Present (Sonia) Accompanied by: Self / Same As Patient Allergies amoxicillin Allergy (Unknown, Verified 07/20/24 10:27) hives ethinyl estradiol [Ortho Tri-Cyclen LO (28)] Adverse Reaction (Unknown, Verified 07/20/24 10:27) chest pain norgestimate [Ortho Tri-Cyclen LO (28)] Adverse Reaction (Unknown, Verified 07/20/24 10:27) chest pain HPI Comments Details: The patient is presenting post hysteroscopy D&C no complaints minimal vaginal bleeding no feverishness chills or abdominal pain. The pathology showed the following: Benign late secretory endometrium; no atypia or carcinoma The following workup was done: H&H= 12.7/38.2 TSH, prolactin, hCG, GC and chlamydia were negative. Co testing was done in 10/07 was negative. Mammogram was in 04/11 was BI-RADS 2. Pelvic ultrasound showed the following: The uterus measures 7.8 x 3.7 x 4.5 cm in longitudinal by AP by transverse dimension. The endometrial stripe measures 1.1 cm. There appears to be mildly mobile blood products/debris within the endometrium. There is a 6 mm simple appearing cyst abutting the posterior uterus. The left ovary measures approximately 4.2 x 2.2 x 3.7 cm and is normal. The right ovary measures approximately 3.3 x 1.6 x 1.6 cm and is also normal. There is no free fluid in the pelvis. [facility] Medical History Anxiety Benign breast cyst in female Syncopal episodes HPV test positive Surgical History Hx of biopsy Hx of wisdom tooth extraction Hx of LASIK Family History Maternal Aunt History of breast cancer Social History Housing: House Alcohol intake: current Alcohol intake frequency: holidays/special occasions only Patient Tobacco Use Status: Never used Tobacco e-Cigarette/Vaping Use: Never Used Second Hand Smoke Exposure: No service: No Current occupational status: employed Gender identity: Female Cognitive needs: No Hearing needs: No Vision needs: No Female Reproductive History Menstrual Age of Menarche: 12 Review of Systems Const All systems reviewed & are unremarkable except as noted in HPI and below Reports as per HPI and Reports no additional complaints GI Reports no additional complaints Reports no additional complaints Assessment & Plan Assessment & Plan (1) Abnormal uterine bleeding (AUB): Code(s): N93.9 - Abnormal uterine and vaginal bleeding, unspecified Category: Medical Plan: Discussed with the patient the results of the work up done and options of treatment including Lysteda, BCP's, Mirena IUD, endometrial ablation and hysterectomy. All pros, cons, risks and benefits if each option was discussed with the patient and the patient decided to think about it and get back to us. All questions answered the patient verbalized understanding. Coding Level of Care Code Est Pt Level 3 (19650) Diagnoses Abnormal uterine bleeding (AUB) N93.9
== END 2024-07-20 10:35 | disposition home or self-care (01) ==
LOC: HO.HWS 10:25
PROVIDERS: PCP Internal Medicine; Visit Provider Obstetrics & Gynecology
DX: N93.9 Abnormal uterine and vaginal bleeding, unspecified (principal)
CPT/HCPCS: 99213

== ENCOUNTER → 2024-07-20 10:25 | Outpatient (BNVA) | payer BC, SELFPAY | PROVIDERS: PCP Internal Medicine; Visit Provider Obstetrics & Gynecology ==

== ENCOUNTER 2024-08-31 07:51 | Outpatient (AMB) | payer BC, SELFPAY ==
--- OUTSIDE RECORDS SUMMARY | 2024-08-31 07:53 | XMS_ITS | Clinical Summary ---
Author Organization [facility] Address [address] [place] [phone] Phone Care Team Providers Care Account Resolution Specialist Name Role Phone Angel Luis Hawkins MD Primary Care Provider [phone] Encounters Date Type Department Care Team Description 06/14/2024 9:00 AM EST - 06/14/2024 11:59 PM EST Hospital Encounter [facility] [address] [place] [phone] Nonintractable epilepsy without status epilepticus, unspecified epilepsy type (CMS/HCC) (Primary Dx) Discharge Disposition: Home or Self Care 06/13/2024 9:00 AM EST - 06/13/2024 11:59 PM EST Hospital Encounter [facility] [address] [place] [phone] Nonintractable epilepsy without status epilepticus, unspecified epilepsy type (CMS/HCC) (Primary Dx) Discharge Disposition: Home or Self Care 06/12/2024 8:00 AM EST - 06/12/2024 11:59 PM EST Hospital Encounter [facility] [address] [place] [phone] Discharge Disposition: Home or Self Care from Last 3 Months Social History Tobacco Use Types Packs/Day Years Used Date Smoking Tobacco: Never Assessed Comments Unknown Sex and Gender Information Value Date Recorded Sex Assigned at Not on file Legal Sex Female 1:59 PM EDT Gender Identity Not on file Sexual Orientation Not on file Plan of Treatment Health Maintenance Due Date Last Done Comments DTaP,Tdap,and Td Vaccines (1 - Tdap) 2004 Hepatitis B Vaccines (1 of 3 - 19+ 3-dose series) 2004 Cervical Cancer Screening: P ap Smear 2006 COVID-19 Vaccine (4 - 2023-2 5 season) 2024 09/16/2021, 10/24/2020, 10/03/2020 Influenza Vaccine (#1) 2024 0, 03/05/2017, 04/21/2016 Depression Screening 05/06/2024 HIV Screening 05/06/2024 Hepatitis C Screening 05/06/2024 Social Influencers of Health Screening 05/06/2024 HIB Vaccines Aged Out No longer eligi ble based on patient's age to complete this topic HPV Vaccines Aged Out No longer eligi ble based on patient's age to complete this topic Hepatitis A Vaccines Aged Out No long er eligible based on patient's age to complete this topic IPV Vaccines Aged Out No longer eligi ble based on patient's age to complete this topic MMR Vaccines Aged Out No longer eligi ble based on patient's age to complete this topic Meningococcal ACWY Vaccine Aged Out N o longer eligible based on patient's age to complete this topic Pneumococcal Vaccine: Pediatrics (0 to 5 Years) and At-Risk Patients (6 to 64 Years) Aged Out No longer eligible b ased on patient's age to complete this topic RSV Immunization Patients Under 20 months Aged Out No longer eligible b ased on patient's age to complete this topic Varicella Vaccines Aged Out No longer eligible based on patient's age to complete this topic Procedures Procedure Name Priority Date/Time Associated Diagnosis Comments CONTINUOUS EEG Routine 06/12/2024 9:49 AM EST Nonintractable epilepsy without status epilepticus, unspecified epilepsy type ([facility]) from Last 3 Months Results * Continuous EEG (06/12/2024 9:49 AM EST) Narrative Lucy Hawkins MD - 06/26/2024 9:32 AM EST This is a 16 channel 48-hour ambulatory EEG. ??Patient kept a diary but did not report any significant events. ??HDF EEG was separately reviewed and included wakefulness and sleep. ??Background EEG rhythm was 10 to 12 Hz symmetric alpha posteriorly and lower amplitude faster anteriorly. ??During this first day of EEG no significant abnormality was noted. ??During the second day, intermittently sometimes left and sometimes right hemispheric temporal area sharp wave complexes were noted with phase reversal at T3 and sometimes at T4. ??Cardiac lead did not reveal any significant abnormality. Impression: Abnormal 48-hour ambulatory EEG suggestive of bitemporal irritability. Lucy Hawkins MD NEUROLOGY ORDERABLES Final Result from Last 3 Months [facility] Care Teams Account Resolution Specialist Relationship Specialty Start Date End Date Angel Luis Hawkins MD [address] [place] [phone] PCP - General Internal Medicine 06/09/24
--- NOTE | 2024-08-31 08:35 | MHC.PC.OV ---
Intake Visit Reasons: Discuss Referral Allergies amoxicillin Allergy (Unknown, Verified 08/31/24 08:35) hives ethinyl estradiol [Ortho Tri-Cyclen LO (28)] Adverse Reaction (Unknown, Verified 08/31/24 08:35) chest pain norgestimate [Ortho Tri-Cyclen LO (28)] Adverse Reaction (Unknown, Verified 08/31/24 08:35) chest pain Medication List - Last Reconciled 08/31/24 by Angel Luis Hawkins MD acetaminophen 500 mg PO Q6H PRN lorazepam 1 mg (2 x 0.5 mg) PO DAILY PRN 1 day Tobacco use date assessed: 08/31/24 Dental Screening Dental Screen Date: 08/31/24 Did you have a dental visit in the last 12 months?: Yes Did you have a dental problem in the last 6 months where you did not have access to dental care?: No Was dental information given to patient?: Patient has dentist HPI Discuss Referral HPI Details Patient is 38 year old female who has seen Neuro had EEG done, and was started on med for epilepsy she couldnt tolerate the medication Levetiracetam Patient states that she is no convinced that she has epilepsy she is asking to repeat the EEG and then if needed , to get second Neuro opinion [facility] Medical History Anxiety Benign breast cyst in female Syncopal episodes HPV test positive Surgical History Hx of biopsy Hx of wisdom tooth extraction Hx of LASIK Family History Maternal Aunt History of breast cancer Social History Housing: House Alcohol intake: current Alcohol intake frequency: holidays/special occasions only Patient Tobacco Use Status: Never used Tobacco e-Cigarette/Vaping Use: Never Used Second Hand Smoke Exposure: No service: No Current occupational status: employed Gender identity: Female Cognitive needs: No Hearing needs: No Vision needs: No Female Reproductive History Menstrual Age of Menarche: 12 Questionnaire Thrive Questionnaire Date Thrive assessed: 02/23/24 I am a: Patient What is your living situation today?: I have a steady place to live Within the past 12 months, did the food you bought not last and you didn't have the money to get more?: Never true Within the past 12 months, did you worry whether your food would run out before you got money to buy more?: Never true Do you have trouble paying for medicines?: No Do you have trouble getting transportation to medical appointments?: No Do you have trouble paying your heating and electricity bill?: No Do you have trouble taking care of your child, family member or friend?: No Do you have trouble with day-to-day activities such as bathing, preparing meals, shopping, managing finances, etc.?: No Are you currently unemployed and looking for a job?: No Are you interested in more education?: No Please select the resources that you would like help with: None Currently or been in a relationship where the following occur: No concerns reported THRIVE Score: 0 AUDIT C Alcohol Use Questionnaire (AUDIT-C) 1. How often do you have a drink containing alcohol?: Monthly or less 2. How many drinks containing alcohol do you have on a typical day when you are drinking?: 1 or 2 3. How often do you have six or more drinks on one occasion?: Never Total Score: 1 Score Reviewed/Action Taken: Yes RANDI-7 AMB Questionnaire RANDI-7 Date RANDI - 7 assessed: 02/25/24 Source: Developed by Drs. Melo Calvillo, Anita Alexander, Hubert Oh and colleagues, with an educational rusty from [employer]. Review of Systems Const Denies chills and Denies fever(s) ENT Denies epistaxis and Denies nasal discharge Card Denies chest pain Resp Denies chest congestion, Denies cough and Denies hemoptysis GI Denies diarrhea and Denies nausea Skin/Breast Denies rash Neuro Reports no additional complaints Psych Reports no additional complaints Endo Reports no additional complaints Physical exam (Primary Care) Tobacco/Smoking Status: Tobacco use Status Tobacco use date assessed 08/31/24 08/31/24 08:35 Patient Tobacco Use Status Never used Tobacco 08/31/24 08:35 e-Cigarette/Vaping Use Never Used 08/31/24 08:35 Thrive Assessment: Date of Thrive Assessment Date Thrive assessed 02/23/24 08/31/24 08:35 Currently or been in a relationship where the following occur: No concerns reported Telehealth Telehealth Telehealth Platform: [employer] Location of provider rendering services: practice address Location of patient: address on file Patient Identification confirmed using: Name, : Yes Telehealth method: voice only Patient verbally consented to treatment: Yes Patient verbally consented to billing insurance company: Yes Patient informed of any privacy concerns related to visit: Yes Minutes spent on Phone/Video with Pt.: 13 Coding Level of Care Code Tele Est Pt Level 3 (97212) Diagnoses Nonintractable epilepsy without status epilepticus, unspecified epilepsy type G40.909 Epilepsy type: unspecified Intractability: not intractable Status epilepticus: without status epilepticus Pre-syncope R55 Assessment & Plan Assessment & Plan (1) Epilepsy: Code(s): G40.909 - Epilepsy, unspecified, not intractable, without status epilepticus Category: Medical Qualifiers: Epilepsy type: unspecified Intractability: not intractable Status epilepticus: without status epilepticus Qualified Code(s): G40.909 - Epilepsy, unspecified, not intractable, without status epilepticus (2) Pre-syncope: Code(s): R55 - Syncope and collapse Category: Medical Plan Patient is 38 year old female who has seen Neuro had EEG done, and was started on med for epilepsy she couldnt tolerate the medication Levetiracetam Patient states that she is no convinced that she has epilepsy she is asking to repeat the EEG and then if needed , to get second Neuro opinion Orders: Orders EEG 72 Hours Today G40.909 - Epilepsy, unspecified, not intractable, without status epilepticus, R55 - Syncope and collapse
== END 2024-08-31 09:48 | disposition home or self-care (01) ==
LOC: HO.HMCC 07:51
PROVIDERS: PCP Internal Medicine; Visit Provider Internal Medicine
DX: G40.909 Epilepsy, unspecified, not intractable, without status epilepticus (principal); R55 Syncope and collapse

== ENCOUNTER 2024-10-19 14:06 | Outpatient (AMB) | payer BC, SELFPAY ==
[2024-10-19 14:19] VITALS: BP 102/62; PULSE 68; TEMP 36.6; O2SAT 99
--- NOTE | 2024-10-19 14:19 | AM.OFFWIN_ITS ---
Intake Vital Signs 3 10/19/24 14:19 Height 5 ft 3 in BP 102/62 Blood Pressure Location Lt brachial Position Sitting Pulse 68 Pulse Source Pulse Oximeter Temp 97.9 F Temp Source Oral Pulse Oximetry (%) 99 Intake Visit Reasons: EP-rt eye stye Intake Note: pt is here for RT eye stye Patient Tobacco Use Status: Never used Tobacco Allergies amoxicillin Allergy (Unknown, Verified 10/19/24 14:19) hives ethinyl estradiol [Ortho Tri-Cyclen LO (28)] Adverse Reaction (Unknown, Verified 10/19/24 14:19) chest pain norgestimate [Ortho Tri-Cyclen LO (28)] Adverse Reaction (Unknown, Verified 10/19/24 14:19) chest pain Do you need a note to return to daycare/school/sports/work: No HPI HPI Comments 2 History of Present Illness0 Details 38 y/o female patient who presents to [facility] walk in clinic with c/o right upper eyelid Stye for few days. Denies vision changes or pain. She has been applying Warm compress on/off with some relief. [facility] Medical History (Updated 10/19/24 @ 15:21 by Dania Degroot NP) External hordeolum Anxiety Benign breast cyst in female Syncopal episodes HPV test positive Surgical History Hx of biopsy Hx of wisdom tooth extraction Hx of LASIK Family History Maternal Aunt History of breast cancer Social History Housing: House Alcohol intake: current Alcohol intake frequency: holidays/special occasions only Patient Tobacco Use Status: Never used Tobacco e-Cigarette/Vaping Use: Never Used Second Hand Smoke Exposure: No service: No Current occupational status: employed Gender identity: Female Cognitive needs: No Hearing needs: No Vision needs: No Female Reproductive History Menstrual Age of Menarche: 12 Review of Systems Const All systems reviewed & are unremarkable except as noted in HPI and below Physical Exam Vital Signs: Last Vital Signs Temp 97.9 F 10/19/24 14:19 Pulse 68 10/19/24 14:19 BP 102/62 10/19/24 14:19 Pulse Ox 99 04/03/25 14:19 Const General: no acute distress Nutritional Appearance: well nourished Orientation/consciousness: patient oriented x3 Eyes Eyelids: Yes eyelid abnormality Conjunctivae: conjunctivae normal Pupils: Equal, round and reactive pupils present EOM: EOMs intact bilaterally Direct Ophthalmoscopy: normal light reflex Eyes/upper lids images: 2 1. Small Sty right upper eyelid. Neuro General: patient oriented x3, gait normal and moves all extremities Cranial nerves: Yes Equal, round and reactive pupils present Psych Speech and movement: Normal speech and movement present Assessment & Plan Assessment & Plan (1) External hordeolum: Code(s): H00.019 - Hordeolum externum unspecified eye, unspecified eyelid Qualifiers: Laterality: right Eyelid: upper Qualified Code(s): H00.011 - Hordeolum externum right upper eyelid Plan: Apply a warm compress to the affected area for 5-10 minutes several times a day. This helps to soften the oil gland and promote drainage. Gently massage the area around the stye to help loosen the blocked oil. Do not wear makeup or contact lenses until the stye has cleared. No need for Topical Abx at this time. Coding Level of Care Code Est Pt Level 4 (15899) Diagnoses Hordeolum externum of right upper eyelid H00.011 Laterality: right Eyelid: upper Time Spent (min) 20
--- OUTSIDE RECORDS SUMMARY | 2024-10-19 15:34 | XMS_ITS | Encounter Summary ---
Author Organization [employer] Address [address] [place] [address] Care Team Providers Care Sales Mgr Name Role Phone Angel Luis Hawkins MD Primary Care Provider Encounter Details Date Type Department Care Team (Late Contact Info) Description 10/11/2024 Lab [facility] [address] [place] [phone] Lucy Hawkins MD [address] [place] [address] [facility] [place] [address] Epilepsy, unspecified, not intractable, without status epilepticus ([facility]) Social History Tobacco Use Types Packs/Day Years Used Date Smoking Tobacco: Never Assessed Comments Unknown Sex and Gender Information Value Date Recorded Sex Assigned at Not on file Legal Sex Female 1:59 PM EDT Gender Identity Not on file Sexual Orientation Not on file documented as of this encounter Plan of Treatment Upcoming Encounters Date Type Department Care Team (Late st Contact Info) Description 12/18/2024 8:00 AM EDT Appointment [facility] [address] [place] [phone] 12/19/2024 9:00 AM EDT Appointment [facility] [address] [place] [phone] 12/20/2024 9:00 AM EDT Appointment [facility] [address] [place] [phone] documented as of this encounter Visit Diagnoses Diagnosis Epilepsy, unspecified, not intractable, without status epilepticus documented in this encounter Orders Neurology Count Last Ordered Date First Orde red Date CONTINUOUS EEG 1 10/11/2024 documented in this encounter Care Teams Sales Mgr Relationship Specialty Start Date End Date Angel Luis Hawkins MD [address] [place] [phone] PCP - General Internal Medicine 06/09/24 documented as of this encounter
--- OUTSIDE RECORDS SUMMARY | 2024-10-19 15:34 | XMS_ITS | Encounter Summary ---
Author Organization [employer] Address [address] [place] [address] Care Team Providers Care Service Porter Name Role Phone Angel Luis Hawkins MD Primary Care Provider [phone] Encounter Details Date Type Department Care Team (Late Contact Info) Description 10/10/2024 Lab [facility]diagn[facility] [address] [place] [phone] Lucy Hawkins MD [address] [place] [address] [facility] [place] [address] Epilepsy, unspecified, not intractable, without status epilepticus ([facility]) Social History Tobacco Use Types Packs/Day [...] Info) Description 12/18/2024 8:00 AM EDT Appointment [facility] [address] [place] [phone] 12/19/2024 9:00 AM EDT Appointment [facility] [address] [place] [phone] 12/20/2024 9:00 AM EDT Appointment [facility] [address] [place] [phone] documented as of this encounter Visit Diagnoses Diagnosis Epilepsy, unspecified, not intractable, without status epilepticus documented in this encounter Orders Neurology Count Last Ordered Date First Orde red Date CONTINUOUS EEG 1 10/07/2024 documented in this encounter Care Teams Service Porter Relationship Specialty Start Date End Date Angel Luis Hawkins MD [address] [place] [phone] PCP - General Internal Medicine 06/09/24 documented as of this encounter
--- OUTSIDE RECORDS SUMMARY | 2024-10-19 15:34 | XMS_ITS | Clinical Summary ---
Author Organization [facility] Address [address] [place] [phone] Phone Care Team Providers Care Emulsification Operator Name Role Phone Angel Luis Hawkins MD Primary Care Provider [phone] Encounters Date Type Department Care Team Description 10/11/2024 [facility] [address] [place] [phone] Lucy Hawkins MD Epilepsy, unspecified, not intractable, without status epilepticus (CMS/HCC) 10/10/2024 [facility] [address] [place] [phone] Lucy Hawkins MD Epilepsy, unspecified, not intractable, without status epilepticus (CMS/HCC) 10/09/2024 [facility] [address] [place] [phone] Lucy Hawkins MD Epilepsy, unspecified, not intractable, without status epilepticus (CMS/HCC) from Last 3 Months Social History Tobacco Use Types Packs/Day Years Used Date Smoking Tobacco: Never Assessed Comments Unknown Sex and Gender Information Value Date Recorded Sex Assigned at Not on file Legal Sex Female 1:59 PM EDT Gender Identity Not on file Sexual Orientation Not on file Plan of Treatment Upcoming Encounters Date Type Department Care Team (Late st Contact Info) Description 12/18/2024 8:00 AM EDT Appointment [facility] [address] [place] [phone] 12/19/2024 9:00 AM EDT Appointment [facility] [address] [place] [phone] 12/20/2024 9:00 AM EDT Appointment [facility] [address] [place] [phone] Health Maintenance Due Date Last Done Comments DTaP,Tdap,and Td Vaccines (1 - Tdap) 2004 Hepatitis B Vaccines (1 of 3 - 19+ 3-dose series) 2004 Cervical Cancer Screening: P ap Smear 2006 COVID-19 Vaccine (4 - 2023-2 5 season) 2024 09/16/2021, 10/24/2020, 10/03/2020 Influenza Vaccine (#1) 2024 , 03/05/2017, 04/21/2016 Depression Screening 05/06/2024 HIV Screening [...] patient's age to complete this topic Meningococcal B Vacine Aged Out No lo nger eligible based on patient's age to complete [...] on patient's age to complete this topic Insurance [facility] Care Teams Emulsification Operator Relationship Specialty Start Date End Date Angel Luis Hawkins MD [address] [place] [phone] PCP - General Internal Medicine 06/09/24
== END 2024-10-19 14:44 | disposition home or self-care (01) ==
PROVIDERS: PCP Internal Medicine; Visit Provider Nurse Practitioner Family
DX: H00.011 Hordeolum externum right upper eyelid (principal)

== ENCOUNTER → 2024-10-19 14:06 | Outpatient (BNVA) | payer BC, SELFPAY | PROVIDERS: PCP Internal Medicine; Visit Provider Nurse Practitioner Family ==

== ENCOUNTER 2025-01-03 13:48 | Outpatient (AMB) | payer BC, SELFPAY ==
[2025-01-03 14:03] VITALS: BP 104/66; PULSE 62; O2SAT 97; BMI 24.8
--- NOTE | 2025-01-03 14:03 | A.OFFPC_ITS ---
Vital Signs 01/03/25 14:03 Height 5 ft 3 in Weight 140 lb BMI 24.8 BP 104/66 Blood Pressure Location Lt brachial Position Sitting Pulse 62 Pulse Source Pulse Oximeter Pulse Oximetry (%) 97 Oxygen Delivery Method Room Air Intake Visit Reasons: PE Tie Hacker Required: No Accompanied by: Self / Same As Patient Allergies amoxicillin Allergy (Unknown, Verified 01/03/25 14:03) hives ethinyl estradiol (Ortho Tri-Cyclen LO (28)) Adverse Reaction (Unknown, Verified 01/03/25 14:03) chest pain norgestimate (Ortho Tri-Cyclen LO (28)) Adverse Reaction (Unknown, Verified 01/03/25 14:03) chest pain Medication List - Last Reconciled 01/03/25 by Angel Luis Hawkins MD No Known Home Meds Tobacco use date assessed: 08/31/24 Dental Screening Dental Screen Date: 08/31/24 HPI PE HPI Details Physical exam - The patient is a 39-year-old female pr esenting for a wellness physical exam and management of epilepsy. - The patient had an appointment with a neurologist Dr. Hawkins and underwent a second EEG at the beginning of this month. - The EEG showed one second of epileptif orm activity, reduced from three seconds of activity from a previous EEG in May. - The patient has not experienced any ep ileptic episodes since the measurement in January last year. - Was previously prescribed Keppra, whic h she could not tolerate due to adverse effects. - Recently prescribed Divalproex Sodium but has not yet commenced taking the medication. - Experiences anxiety, particularly asso ciated with flying after an incident of having an episode on a plane. - Has experienced symptoms associated wi th , nausea, vomiting, diarrhea, and sweating, before the episode which last few minutes and then resolve - Reports no seizures like activity , bu t has experienced premonitory sensations similar to seizure aura without full episodes. Medical History: - Benign Epilepsy - Anxiety - Vitamin D Deficiency - Hyperlipidemia last set of lab Decemb r 2023 Social History: - Experiences anxiety related to flying due to past episodes. - Plans and routine activities can lead to anxiety, such as airplane travel and getting blood drawn. Health Maintenance - Vitamin D supplementation needed. - Advised dietary changes to manage hype rlipidemia, avoiding fried foods due to high LDL levels. - Measurements in June showed vitami n D deficiency and elevated cholesterol levels. - Updated screenings: thyroid function, liver enzymes, kidney function, and electrolytes normal. - Recommended continuation of routine WASTEWATER TREATMENT OPERATOR check-ups and breast exams. Diagnostic results - Labs: Vitamin D level low, elevated ch olesterol with LDL at 163, HDL compensating. - EEG: One-second activity in the left t emporal lobe, previous EEG showed three seconds in both temporal lobes. Patient Instructions - Start Divalproex Sodium as prescribed to stabilize neuronal activity. - Take vitamin D supplements as instruct ed. - Follow dietary recommendations to lucille ge cholesterol levels. - Use lorazepam as needed for anxiety, p articularly during flights. - Schedule follow-up appointments as adv ised. Review of Systems - General: No fever no chills - Neurological: No headaches no dizzin ess - Ear nose throat: No sore throat no hearing difficulty no ear pain - Cardiovascular: No syncope, no chest pain, no palpitations - Gastrointestinal: No nausea vomiting or diarrhea - Endocrine: No polyuria polydipsia no heat intolerance - Genitourinary: No dysuria - Skin: No new complaints Physical Exam General: Cooperative, healthy appearing, comfortable, no acute distress Orientation: Patient oriented x3 Head: Normal to inspection Ears: Within normal limit visually Nose: Normal external nose present Face and sinus: Normal facial exam Eyes: Appearance normal, extraocular movement intact pupils reactive Neck: Normal visual inspection and supple Respiratory: Normal respiratory effort and able to speak in complete sentences. Clear to auscultation, no stridor Cardiovascular: S1 and S2 RRR Breast exam: Right breast with cystic lump close to nipple chronic GI: Normal to inspection. Soft to palpation and nontender Skin: Turgor normal, no acute findings Neuro: Patient oriented x3, motor sensory intact, balance intact, tandem pass Extremities: Normal to inspection full range of motion PFSH Medical History External hordeolum Anxiety Benign breast cyst in female Syncopal episodes HPV test positive Surgical History Hx of biopsy Hx of wisdom tooth extraction Hx of LASIK Family History Maternal Aunt History of breast cancer Social History Housing: House Alcohol intake: current Alcohol intake frequency: holidays/special occasions only Patient Tobacco Use Status: Never used Tobacco e-Cigarette/Vaping Use: Never Used Second Hand Smoke Exposure: No service: No Current occupational status: employed Gender identity: Female Cognitive needs: No Hearing needs: No Vision needs: No Female Reproductive History Menstrual Age of Menarche: 12 Questionnaire PHQ-9 Over the last 2 weeks, how often have you been bothered by any of the following problems? 1. Little interest or pleasure in doing things: not at all 2. Feeling down, depressed, or hopeless: not at all 3. Trouble falling or staying asleep, or sleeping too much: not at all 4. Feeling tired or having little energy: not at all 5. Poor appetite or overeating: not at all 6. Feeling bad about yourself - or that you are a failure or have let yourself or your family down: not at all 7. Trouble concentrating on things, such as reading the newspaper or watching television: not at all 8. Moving or speaking so slowly that other people could have noticed. Or the opposite - being so fidgety or restless that you have been moving around a lot more than usual: not at all 9. Thoughts that you would be better off or of hurting yourself in some way: not at all Total score: 0 Depression Screening Interpretation: Negative Depression Screening Done: Yes 63531 - PHQ-9 Billing: Yes Source: Developed by Drs. Melo Calvillo, Anita Alexander, Hubert Oh and colleagues, with an educational rusty from [employer]. Thrive Questionnaire Date Thrive assessed: 01/03/25 I am a: Patient What is your living situation today?: I have a steady place to live Within the past 12 months, did the food you bought not last and you didn't have the money to get more?: Never true Within the past 12 months, did you worry whether your food would run out before you got money to buy more?: Never true Do you have trouble paying for medicines?: No Do you have trouble getting transportation to medical appointments?: No Do you have trouble paying your heating and electricity bill?: No Do you have trouble taking care of your child, family member or friend?: No Do you have trouble with day-to-day activities such as bathing, preparing meals, shopping, managing finances, etc.?: No Are you currently unemployed and looking for a job?: No Are you interested in more education?: No Please select the resources that you would like help with: None Currently or been in a relationship where the following occur: No concerns reported THRIVE Score: 0 AUDIT C Alcohol Use Questionnaire (AUDIT-C) 1. How often do you have a drink containing alcohol?: Monthly or less 2. How many drinks containing alcohol do you have on a typical day when you are drinking?: 1 or 2 3. How often do you have six or more drinks on one occasion?: Never Total Score: 1 Score Reviewed/Action Taken: Yes RANDI-7 AMB Questionnaire RANDI-7 Date RANDI - 7 assessed: 01/03/25 Feeling nervous, anxious, or on edge: 0 = Not at all Not being able to stop or control worryin = Not at all Worrying too much about different things: 0 = Not at all Trouble relaxin = Not at all Being so restless that it is hard to sit still: 0 = Not at all Becoming easily annoyed or irritable: 0 = Not at all Feeling afraid as if something awful might happen: 0 = Not at all Total RANDI-7 score (0-4 normal; 5-9 mild; 10-14 moderate; 15-21 severe): 0 Source: Developed by Drs. Melo Calvillo, Anita Alexander, Hubert Oh and colleagues, with an educational rusty from [employer]. RANDI-7 Assessment Billing RANDI-7 Assessment Tool: RANDI-7 Assessment 16139 Physical exam (Primary Care) Vital Signs: Last Vital Signs Pulse 62 01/03/25 14:03 BP 104/66 01/03/25 14:03 Pulse Ox 97 01/03/25 14:03 Oxygen Delivery Method Room Air 01/03/25 14:03 BMI result Body Mass Index 24.8 Tobacco/Smoking Status: Tobacco use Status Tobacco use date assessed 08/31/24 01/03/25 14:09 Patient Tobacco Use Status Never used Tobacco 01/03/25 14:09 e-Cigarette/Vaping Use Never Used 01/03/25 14:09 PHQ-9: PHQ-9 Score PHQ-9: Total score 0 01/03/25 14:53 Depression Screening Interpretation: Negative Thrive Assessment: Date of Thrive Assessment Date Thrive assessed 01/03/25 01/03/25 14:09 Currently or been in a relationship where the following occur: No concerns reported Coding Level of Care Code Est Pt Level 3 (99756) Est Pt Prev Care 18-39y(06537) Diagnoses Encounter for general adult medical examination with abnormal findings Z00.01 Nonintractable epilepsy without status epilepticus, unspecified epilepsy type G40.909 Epilepsy type: unspecified Intractability: not intractable Status epilepticus: without status epilepticus Cyst of right breast N60.01 Additional Codes RANDI-7 Assessment Billing - RANDI-7 Assessment Tool: RANDI-7 Assessment 12260 ([id number]) PHQ-9 - 46328 - PHQ-9 Billing: Yes ([id number]) Assessment & Plan Assessment & Plan (1) Encounter for general adult medical examination with abnormal findings: Code(s): Z00.01 - Encounter for general adult medical examination with abnormal findings Category: Medical (2) Epilepsy: Code(s): G40.909 - Epilepsy, unspecified, not intractable, without status epilepticus Category: Medical Qualifiers: Epilepsy type: unspecified Intractability: not intractable Status epilepticus: without status epilepticus Qualified Code(s): G40.909 - Epilepsy, unspecified, not intractable, without status epilepticus (3) Cyst of right breast: Code(s): N60.01 - Solitary cyst of right breast Category: Medical Plan Physical exam - The patient is a 39-year-old female presenting for a wellness physical exam and management of epilepsy. - The patient had an appointment with a neurologist Dr. Hawkins and underwent a second EEG at the beginning of this month. - The EEG showed one second of epileptiform activity, reduced from three seconds of activity from a previous EEG in May. - The patient has not experienced any epileptic episodes since the measurement in January last year. - Was previously prescribed Keppra, which she could not tolerate due to adverse effects. - Recently prescribed Divalproex Sodium but has not yet commenced taking the medication. - Experiences anxiety, particularly associated with flying after an incident of having an episode on a plane. - Has experienced symptoms associated with , nausea, vomiting, diarrhea, and sweating, before the episode which last few minutes and then resolve - Reports no seizures like activity , but has experienced premonitory sensations similar to seizure aura without full episodes. Medical History: - Benign Epilepsy - Anxiety - Vitamin D Deficiency - Hyperlipidemia last set of lab June of 2024 Social History: - Experiences anxiety related to flying due to past episodes. - Plans and routine activities can lead to anxiety, such as airplane travel and getting blood drawn. Health Maintenance - Vitamin D supplementation needed. - Advised dietary changes to manage hyperlipidemia, avoiding fried foods due to high LDL levels. - Measurements in June showed vitamin D deficiency and elevated cholesterol levels. - Updated screenings: thyroid function, liver enzymes, kidney function, and electrolytes normal. - Recommended continuation of routine OBGYN check-ups and breast exams. Diagnostic results - Labs: Vitamin D level low, elevated cholesterol with LDL at 163, HDL compensating. - EEG: One-second activity in the left temporal lobe, previous EEG showed three seconds in both temporal lobes. Patient Instructions - Start Divalproex Sodium as prescribed to stabilize neuronal activity. - Take vitamin D supplements as instructed. - Follow dietary recommendations to manage cholesterol levels. - Use lorazepam as needed for anxiety, particularly during flights. - Schedule follow-up appointments as advised. Medications: New divalproex 500 mg PO BID
== END 2025-01-03 14:41 | disposition home or self-care (01) ==
LOC: HO.HMCC 13:48
PROVIDERS: PCP Internal Medicine; Visit Provider Internal Medicine
DX: Z00.01 Encounter for general adult medical examination with abnormal findings (principal); G40.909 Epilepsy, unspecified, not intractable, without status epilepticus; N60.01 Solitary cyst of right breast

== ENCOUNTER → 2025-01-03 13:48 | Outpatient (BNVA) | payer BC, SELFPAY | PROVIDERS: PCP Internal Medicine; Visit Provider Internal Medicine | DX: Z00.01 Encounter for general adult medical examination with abnormal findings (principal); G40.909 Epilepsy, unspecified, not intractable, without status epilepticus; N60.01 Solitary cyst of right breast | CPT/HCPCS: 96127 ==

== ENCOUNTER 2025-02-02 15:19 | Outpatient (REF) | payer BC, SELFPAY ==
--- OUTSIDE RECORDS SUMMARY | 2025-02-02 15:22 | XMS_ITS | Clinical Summary ---
Author Organization [facility] Address [address] [place] [phone] Phone Care Team Providers Care Medical Aide Name Role Phone Angel Luis Hawkins MD Primary Care Provider [phone] Encounters Date Type Department Care Team Description 12/20/2024 9:00 AM EDT - 12/20/2024 11:59 PM EDT Hospital Encounter [facility] [address] [place] [phone] Discharge Disposition: Home or Self Care 12/19/2024 9:00 AM EDT - 12/19/2024 11:59 PM EDT Hospital Encounter [facility] [address] [place] [phone] Discharge Disposition: Home or Self Care 12/18/2024 7:43 AM EDT - 12/18/2024 11:59 PM EDT Hospital Encounter [facility] [address] [place] [phone] Discharge Disposition: Home or Self Care from [...] Screening: P ap Smear 2006 COVID-19 Vaccine (2023-2 5 season) 2024 09/16/2021, 10/24/2020, 10/03/2020 Depression Screening 05/06/2024 HIV Screening 05/06/2024 Hepatitis C Screening 05/06/2024 Social Influencers of Health Screening 05/06/2024 Influenza Vaccine (#1) 2025 0, 03/05/2017, 04/21/2016 HIB Vaccines Aged Out No longer eligi [...] age to complete this topic Meningococcal B Vaccine Aged Out No l onger eligible based on patient's age to complete this topic Pneumococcal Vaccine: Pediatrics (0 to 5 Years) and At-Risk Patients (6 to 49 Years) Aged Out No longer eligible b ased on patient's age to complete this topic RSV Immunization Patients Under 20 months Aged Out No longer eligible b ased on patient's age to complete this topic Varicella Vaccines Aged Out No longer eligible based on patient's age to complete this topic Procedures Procedure Name Priority Date/Time Associated Diagnosis Comments CONTINUOUS EEG Routine 12/20/2024 9:25 AM EDT Epilepsy, unspecified, not intractable, without status epilepticus ([facility] V24, [facility] V28) CONTINUOUS EEG Routine 12/19/2024 9:22 AM EDT Epilepsy, unspecified, not intractable, without status epilepticus ([facility] V24, [facility] V28) CONTINUOUS EEG Routine 12/18/2024 9:01 AM EDT Epilepsy, unspecified, not intractable, without status epilepticus ([facility] V24, [facility] V28) from Last 3 Months Results * Continuous EEG (12/20/2024 9:25 AM EDT) Narrative Lucy Hawkins MD - 12/25/2024 9:09 AM EDT Table formatting from the original result was not included. Images from the original result were not included. [facility] [address] [place] [id number] Ambulatory Electroencephalogram Report Date of service: 12/20/24 Patient Name: Deb Trimble Date of : 1985 Age: 39 y.o. Gender: female Procedure Order: Continuous EEG Ordering Provider: Lucy Hawkins MD Reason for Exam: Order Questions Answers Type of monitoring Unmonitored Diagnosis listed on Order: Epilepsy, unspecified, not intractable, without status epilepticus ([facility] V24, [facility] V28) Procedure Performed: 48-hour ambulatory EEG EEG Technical Description: This study was performed using the 10-20 [employer] Electrode System placement and single channel EKG electrode on Trex recorder. Settings included: low frequency filter of 1 Hz, high frequency filter of 70 Hz, sensitivity of 7 uV/mm, a display speed of 30 mm/sec, with a 60 Hz notched filter applied as appropriate. Modifications in these parameters were made as necessary for further waveform resolution. Video Recording: No Description: This is a 48-hour ambulatory EEG. Patient kept diary of each day and did not report any significant events. HDF EEG was separately reviewed and included wakefulness and sleep. During wakefulness, background EEG rhythm was symmetric alpha posteriorly lower amplitude faster anteriorly. Frequent muscle and lead artifacts were noted. There were rare left temporal sharp waves with phase reversal at T3. Cardiac lead did not reveal any significant abnormality. Impression: Abnormal EEG suggestive of left temporal irritability. us Lucy Hawkins MD NEUROLOGY ORDERABLES Final Result * Continuous EEG (12/19/2024 9:22 AM EDT) Narrative Lucy Hawkins MD - 12/25/2024 9:09 AM EDT Table formatting from the original result was not included. Images from the original result were not included. [facility] [address] [place] [address] Ambulatory Electroencephalogram Report Date of service: 12/19/24 Patient Name: Deb Trimble Date of : 1985 Age: 39 y.o. Gender: female Procedure Order: Continuous EEG Ordering Provider: Lucy Hawkins MD Reason for Exam: Order Questions Answers Type of monitoring Unmonitored Diagnosis listed on Order: Epilepsy, unspecified, not intractable, without status epilepticus ([facility] V24, [facility] V28) This is a recurrent day study. Please see report with final results. Lucy Hawkins MD NEUROLOGY ORDERABLES Final Result * Continuous EEG (12/18/2024 9:01 AM EDT) Narrative Lucy Hawkins MD - 12/25/2024 9:07 AM EDT This is a 48-hour ambulatory EEG. Patient kept a diary of each day and did not report any significant events. HDF EEG was separately reviewed and included wakefulness and sleep. Background EEG rhythm during wakefulness was symmetric alpha posteriorly and low amplitude faster anteriorly. At times, frequent artifacts were noted. There were rare left temporal sharp waves with phase reversal at T3. Cardiac lead did not reveal any significant abnormality. Impression: Abnormal EEG suggestive of left temporal irritability. Lucy Hawkins MD NEUROLOGY ORDERABLES Final Result from Last 3 Months Insurance [facility] Member Subscriber Plan / Payer (Ef fective 2024-Present) Name:DEB TRIMBLE Relation to Subscriber:Self Name:Dbe Trimble Payer ID:[id number] Type:Not on file Address: [address] [place] [address] Care Teams Medical Aide Relationship Specialty Start Date End Date Angel Luis Hawkins MD [address] [place] [phone] PCP - General Internal Medicine 06/09/24
[2025-02-02 15:49] LABS: MANUAL DIFF FLAG NO
[2025-02-02 16:10] LABS: Hematocrit 37.7 % (37.0-47.0); Hemoglobin 12.4 g/dl (12.0-16.0); Imm Gran Abs Auto 0.03 X10*3/uL (0.00-0.03); Imm Gran Pct Auto 0.4 % (0.0-0.4); Lymphocytes Absolute Auto 2.4 X10*3/uL (1.2-4.9); Mean Corpuscular HGB Conc 32.9 g/dl (31.0-35.0); Mean Corpuscular Hemoglobin 27.2 pg (27.0-33.0); Mean Corpuscular Volume 82.7 fL (80.0-98.0); NRBC Abs Auto 0.000 X10*3/uL (0.0-0.012); NRBC Pct Auto 0.0 /100WBC (0.0-0.2); Platelet Count 172 X10*3/uL (160-400); Red Blood Count 4.56 X10*6/uL (4.20-5.50); White Blood Count 7.5 X10*3/uL (4.8-10.8)
[2025-02-02 16:42] LABS: Alanine Aminotransferase 12 U/L (0-31); Albumin Level 4.5 g/dL (3.5-5.0); Alkaline Phosphatase 71 U/L (39-117); Aspartate Amino Transferase 45 U/L (5-31); Total Protein 7.6 g/dL (6.5-8.0)
== END 2025-02-02 15:20 | disposition home or self-care (01) ==
LOC: HO.LAB 15:19
PROVIDERS: PCP Internal Medicine; Visit Provider Psychiatry & Neurology Neurology
DX: G40.909 Epilepsy, unspecified, not intractable, without status epilepticus (principal)
CPT/HCPCS: 36415; 80076; 85025

== ENCOUNTER 2025-02-22 12:51 | Outpatient (AMB) | payer BC, SELFPAY ==
--- OUTSIDE RECORDS SUMMARY | 2025-02-22 12:54 | XMS_ITS | Clinical Summary ---
Author Organization [facility] Address [address] [place] [phone] Phone Care Team Providers Care Plant Technician/Control Room Operator Name Role Phone Angel Luis Hawkins MD Primary Care Provider [phone] Encounters Date Type Department Care Team Description 12/20/2024 9:00 AM EDT - 12/20/2024 11:59 PM EDT Hospital Encounter [facility] [address] [place] [phone] Discharge Disposition: Home or Self Care 12/19/2024 9:00 AM EDT - 12/19/2024 11:59 PM EDT Hospital Encounter [facility] [address] [place] [phone] Discharge Disposition: Home or Self Care 12/18/2024 7:43 AM EDT - 12/18/2024 11:59 PM EDT Hospital Encounter [facility] [address] [place] [phone] Discharge Disposition: Home or Self Care from [...] (2023-2 5 season) 2024 09/16/2021, 10/24/2020, 10/03/2020 HIV Screening 05/06/2024 Hepatitis C Screening 05/06/2024 Social Influencers of Health Screening 05/06/2024 Depression Screening 07/19/2024 Influenza Vaccine (#1) 2025 0, 03/05/2017, 04/21/2016 [...] Epilepsy, unspecified, not intractable, without status epilepticus ([facility] V24, [facility] V28) CONTINUOUS EEG Routine 12/19/2024 9:22 AM EDT Epilepsy, unspecified, not intractable, without status epilepticus ([facility] V24, [facility] V28) CONTINUOUS EEG Routine 12/18/2024 9:01 AM EDT Epilepsy, unspecified, not intractable, without status epilepticus ([facility] V24, [facility] V28) from Last 3 Months Results * Continuous EEG (12/20/2024 9:25 AM EDT) Narrative Lucy Hawkins MD - 12/25/2024 9:09 AM EDT Table formatting from the original result was not included. Images from the original result were not included. [facility] [address] [place] [phone] Ambulatory Electroencephalogram Report Date of service: 12/20/24 Patient Name: Deb Trimble Date of : 1985 Age: 39 y.o. Gender: female Procedure Order: Continuous EEG Ordering Provider: Lucy Hawkins MD Reason for Exam: Order Questions Answers Type of monitoring Unmonitored Diagnosis listed on Order: Epilepsy, unspecified, not intractable, without status epilepticus ([facility] V24, [facility] V28) Procedure Performed: 48-hour ambulatory [...] result were not included. [facility] [address] [place] [address] Ambulatory Electroencephalogram Report Date of service: 12/19/24 Patient Name: Deb Trimble Date of : 1985 Age: 39 y.o. Gender: female Procedure Order: Continuous EEG Ordering Provider: Lucy Hawkins MD Reason for Exam: Order Questions Answers Type of monitoring Unmonitored Diagnosis listed on Order: Epilepsy, unspecified, not intractable, without status epilepticus ([facility] V24, [facility] V28) This is a recurrent [...] Final Result from Last 3 Months Insurance [facility] Member Subscriber Plan / Payer (Ef fective 2024-Present) Name:DEB TRIMBLE Relation to Subscriber:Self Name:Deb Trimble Payer ID:[id number] Type:Not on file Address: [address] [place] [address] Care Teams Plant Technician/Control Room Operator Relationship Specialty Start Date End Date Angel Luis Hawkins MD [address] [place] [phone] PCP - General Internal Medicine 06/09/24
--- NOTE | 2025-02-22 12:55 | A.OFFVIS_ITS ---
Intake Visit Reasons: numbness, tingling Allergies amoxicillin Allergy (Unknown, Verified 01/03/25 14:03) hives ethinyl estradiol (Ortho Tri-Cyclen LO (28)) Adverse Reaction (Unknown, Verified 01/03/25 14:03) chest pain norgestimate (Ortho Tri-Cyclen LO (28)) Adverse Reaction (Unknown, Verified 01/03/25 14:03) chest pain HPI Comments Details: 39 yo RH woman with complex partial seizure disorder and migraine type headaches. Her episodes caused many symptoms and started in early part of 2023. Suddenly, she felt a wave over her , severe nausea, vomiting, cold sweats, and strong urge to pass bowel, and sometimes explosive diarrhea. Sometimes, she was able to control this urge. She got extremely uncomfortable and put herself down not able to move for 15-30 minutes. She denied LOC but she could not communicate well during that time. Ambulatory EEG in Jun 2024 revealed bitemporal sharps. She also has been having migraine type headaches. She was doing better with no further spells. Headaches were also better. She was off for a few weeks and stress was less. [facility] Medical History External hordeolum Anxiety Benign breast cyst in female Syncopal episodes HPV test positive Surgical History Hx of biopsy Hx of wisdom tooth extraction Hx of LASIK Family History Maternal Aunt History of breast cancer Social History Housing: House Alcohol intake: current Alcohol intake frequency: holidays/special occasions only Patient Tobacco Use Status: Never used Tobacco e-Cigarette/Vaping Use: Never Used Second Hand Smoke Exposure: No service: No Current occupational status: employed Gender identity: Female Cognitive needs: No Hearing needs: No Vision needs: No Female Reproductive History Menstrual Age of Menarche: 12 Review of Systems Const Details: She was complaining of forgetfulness, numbness in left hand and little finger and adjacent finger, and hair loss. ? Physical Exam Neuro Other: Mental Status: Alert and oriented to person, place, and time. Normal attention. Normal spontaneous speech, fluency, and comprehension. No obvious issues with mood and memory. Affect is very anxious. Cranial Nerves: CN II: Visual kay full to confrontation, visual acuity intact. CN III, IV, : Pupils equal, round, reactive to light and accommodation. Extraocular movements are normal. CN V: Facial sensation is normal. CN VII: Facial movements symmetrical. CN VIII: Hearing intact to bedside conversation is normal. CN IX, X: Palate elevates symmetrically. CN XI: Shoulder shrug and head turn symmetrical. CN XII: Tongue midline without atrophy or fasciculations. Extrapyramidal: Full facial expressions and blinking. No rigidity. Movements are appropriate with no tremor or abnormality. Speech: Normal; no dysarthria or tremor. Assessment & Plan Assessment & Plan (1) Migraine headache without aura: Code(s): G43.009 - Migraine without aura, not intractable, without status migrainosus Category: Medical Qualifiers: Status migrainosus presence: without status migrainosus Intractability: intractable Qualified Code(s): G43.019 - Migraine without aura, intractable, without status migrainosus (2) Epilepsy: Comment: Meds tried: Keppra, Depakote Amb EEG at [facility] in December 2024: Phase reversal at T3Amb EEG at [facility] in May 2024: Bitemporal sharps Routine EEG at [facility] in Feb 2024: WNL MRI brain WO at [facility] in Mar 2024: WNL Code(s): G40.909 - Epilepsy, unspecified, not intractable, without status epilepticus Category: Medical Qualifiers: Epilepsy type: unspecified Intractability: not intractable Status epilepticus: without status epilepticus Qualified Code(s): G40.909 - Epilepsy, unspecified, not intractable, without status epilepticus (3) Ulnar neuropathy: Code(s): G56.20 - Lesion of ulnar nerve, unspecified upper limb Category: Medical Qualifiers: Laterality: left Qualified Code(s): G56.22 - Lesion of ulnar nerve, left upper limb Plan Impression: a: Epilepsy, relatively controlled with depakote b: Migraine, better with depakote c: Anxiety/panic type symptoms needing further attention d: Forgetfulness likely due to untreated anxiety e: Mild LFT abnormality f: Left hand numbness, ?ulnar neuropathy Rec: a: Reassurance and education b: Continue Depakote but if she is to nervous high can change it to lamotrigine. We discussed the protocol c: Repeat LFTs in Sep d: F/U with PCP to manage anxiety. Some gudiance given e: PRN Lorazepam for situational anxiety like blood drawing Orders: Orders NE electromyogram (EMG) Today G56.22 - Lesion of ulnar nerve, left upper limb NE nerve conduction velocity Today G56.22 - Lesion of ulnar nerve, left upper limb Medications: New lorazepam 0.5 mg PO DAILY PRN 10 tabs 0RF anxiety Changed From divalproex 500 mg PO BID To divalproex 500 mg PO ONCE 90 tabs 0RF Coding Level of Care Code Est Pt Level 5 (57544) Diagnoses Intractable migraine without aura and without status migrainosus G43.019 Status migrainosus presence: without status migrainosus Intractability: intractable Nonintractable epilepsy without status epilepticus, unspecified epilepsy type G40.909 Epilepsy type: unspecified Intractability: not intractable Status epilepticus: without status epilepticus Ulnar neuropathy of left upper extremity G56.22 Laterality: left
== END 2025-02-22 13:35 | disposition home or self-care (01) ==
LOC: HO.HSM 12:52
PROVIDERS: PCP Internal Medicine; Visit Provider Psychiatry & Neurology Neurology
DX: G43.019 Migraine without aura, intractable, without status migrainosus (principal); G40.909 Epilepsy, unspecified, not intractable, without status epilepticus; G56.22 Lesion of ulnar nerve, left upper limb
CPT/HCPCS: 99214

== ENCOUNTER 2025-03-01 13:03 | Outpatient (REF) | payer BC, SELFPAY ==
--- NOTE | 2025-03-01 13:07 | EMG_ITS ---
Left median and ulnar motor and sensory studies were performed left radial sensory and median and lateral antecubital brachial sensory studies were performed and left ulnar dorsal sensory study was performed. EMG needle examination was also performed. Impression: Mild left ulnar neuropathy impacting dorsal sensory components MTDD
--- OUTSIDE RECORDS SUMMARY | 2025-03-01 13:54 | XMS_ITS | Clinical Summary ---
Author Organization [facility] Address [address] [place] [phone] Phone Care Team Providers Care Human Resources Manager Manufacturing Name Role Phone Angel Luis Hawkins MD Primary Care Provider [phone] Encounters Date Type Department Care Team Description 12/20/2024 9:00 AM EDT - 12/20/2024 11:59 PM EDT Hospital Encounter [facility] [address] [place] [phone] Discharge Disposition: Home or Self Care 12/19/2024 9:00 AM EDT - 12/19/2024 11:59 PM EDT Hospital Encounter [facility] [address] [place] [phone] Discharge Disposition: Home or Self Care 12/18/2024 7:43 AM EDT - 12/18/2024 11:59 PM EDT Hospital Encounter [facility] [address] [place] [phone] Discharge Disposition: Home or Self Care from [...] Epilepsy, unspecified, not intractable, without status epilepticus ([facility] V24, [facility] V28) CONTINUOUS EEG Routine 12/19/2024 9:22 AM EDT Epilepsy, unspecified, not intractable, without status epilepticus ([facility] V24, [facility] V28) CONTINUOUS EEG Routine 12/18/2024 9:01 AM EDT Epilepsy, unspecified, not intractable, without status epilepticus ([facility] V24, [facility] V28) from Last 3 Months Results * Continuous EEG (12/20/2024 9:25 AM EDT) Narrative Lucy Hawkins MD - 12/25/2024 9:09 AM EDT Table formatting from the original result was not included. Images from the original result were not included. [facility] [address] [place] [id number] Ambulatory Electroencephalogram Report Date of service: 12/20/24 Patient Name: Deb Trimble Date of : 1985 Age: 39 y.o. Gender: female Procedure Order: Continuous EEG Ordering Provider: Lucy Hawkins MD Reason for Exam: Order Questions Answers Type of monitoring Unmonitored Diagnosis listed on Order: Epilepsy, unspecified, not intractable, without status epilepticus ([facility] V24, [facility] V28) Procedure Performed: 48-hour ambulatory EEG EEG [...] result were not included. [facility] [address] [place] [address] Ambulatory Electroencephalogram Report Date of service: 12/19/24 Patient Name: Deb Trimble Date of : 1985 Age: 39 y.o. Gender: female Procedure Order: Continuous EEG Ordering Provider: Lucy Hawkins MD Reason for Exam: Order Questions Answers Type of monitoring Unmonitored Diagnosis listed on Order: Epilepsy, unspecified, not intractable, without status epilepticus ([facility] V24, [facility] V28) This is a recurrent day study. [...] Final Result from Last 3 Months Insurance [facility] Member Subscriber Plan / Payer (Ef fective 2024-Present) Name:DEB TRIMBLE Relation to Subscriber:Self Name:Deb Trimble Payer ID:[id number] Type:Not on file Address: [address] [place] [address] Care Teams Human Resources Manager Manufacturing Relationship Specialty Start Date End Date Angel Luis Hawkins MD [address] [place] [phone] PCP - General Internal Medicine 06/09/24
== END 2025-03-01 13:04 | disposition home or self-care (01) ==
LOC: HO.NEURO 13:03
PROVIDERS: PCP Internal Medicine; Visit Provider Psychiatry & Neurology Neurology
DX: G56.22 Lesion of ulnar nerve, left upper limb (principal)
CPT/HCPCS: 95885; 95886; 95911

== ENCOUNTER → 2025-03-01 13:07 | Outpatient (BNV) | payer BC, SELFPAY | PROVIDERS: PCP Internal Medicine; Visit Provider Psychiatry & Neurology Neurology | DX: G56.22 Lesion of ulnar nerve, left upper limb (principal) | CPT/HCPCS: 95886; 95911 ==

== ENCOUNTER 2025-03-22 06:49 | Outpatient (AMB) | payer OTHER, SELFPAY ==
--- OUTSIDE RECORDS SUMMARY | 2025-03-22 06:52 | XMS_ITS | Clinical Summary ---
Author Organization [facility] Address [address] [place] [address] Phone Care Team Providers Care Distribution Superintendent Name Role Phone Angel Luis Hawkins MD Primary Care Provider [phone] Encounters Date Type Department Care Team Description 12/20/2024 9:00 AM EDT - 12/20/2024 11:59 PM EDT Hospital Encounter [facility] [address] [place] [phone] Discharge Disposition: Home or Self Care from [...] Cervical Cancer Screening: P ap Smear 2006 HIV Screening 05/06/2024 Hepatitis C Screening 05/06/2024 Social Influencers of Health Screening 05/06/2024 Depression Screening 07/19/2024 COVID-19 Vaccine (4 - 2024-2 6 season) 2025 09/16/2021, 10/24/2020, 10/03/2020 Influenza Vaccine (#1) 2025 , 03/05/2017, 04/21/2016 HIB Vaccines Aged Out No [...] Epilepsy, unspecified, not intractable, without status epilepticus ([facility] V24, [facility] V28) from Last 3 Months Results * Continuous EEG (12/20/2024 9:25 AM EDT) Narrative Lucy Hawkins MD - 12/25/2024 9:09 AM EDT Table formatting from the original result was not included. Images from the original result were not included. [facility] [address] [place] [id number] Ambulatory Electroencephalogram Report Date of service: 12/20/24 Patient Name: Deb Trimble Date of : 1985 Age: 39 y.o. Gender: female Procedure Order: Continuous EEG Ordering Provider: Lucy Hawkins MD Reason for Exam: Order Questions Answers Type of monitoring Unmonitored Diagnosis listed on Order: Epilepsy, unspecified, not intractable, without status epilepticus ([facility] V24, [facility] V28) Procedure Performed: 48-hour ambulatory [...] Final Result from Last 3 Months Insurance [facility] Care Teams Distribution Superintendent Relationship Specialty Start Date End Date Angel Luis Hawkins MD [address] [place] [phone] PCP - General Internal Medicine 06/09/24
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
== END 2025-03-22 09:59 | disposition home or self-care (01) ==
LOC: HO.HMCC 06:50
PROVIDERS: PCP Internal Medicine; Visit Provider Internal Medicine
DX: R45.89 Other symptoms and signs involving emotional state (principal); G40.909 Epilepsy, unspecified, not intractable, without status epilepticus; Z56.6 Other physical and mental strain related to work; Z04.2 Encounter for examination and observation following work accident

== ENCOUNTER 2025-04-02 09:25 | Outpatient (AMB) | payer BC, SELFPAY ==
--- NOTE | 2025-04-02 09:30 | A.OFFVIS_ITS ---
Intake Visit Reasons: 3m CPS Allergies amoxicillin Allergy (Unknown, Verified 01/03/25 14:03) hives ethinyl estradiol (Ortho Tri-Cyclen LO (28)) Adverse Reaction (Unknown, Verified 01/03/25 14:03) chest pain norgestimate (Ortho Tri-Cyclen LO (28)) Adverse Reaction (Unknown, Verified 01/03/25 14:03) chest pain HPI Comments Details: 39 yo RH woman with complex partial seizure disorder and migraine type headaches. Her episodes caused many symptoms and started in early part of 2023. Suddenly, she felt a wave over her , severe nausea, vomiting, cold sweats, and strong urge to pass bowel, and sometimes explosive diarrhea. Sometimes, she was able to control this urge. She got extremely uncomfortable and put herself down not able to move for 15-30 minutes. She denied LOC but she could not communicate well during that time. Ambulatory EEG in Jun 2024 revealed bitemporal sharps. She also has been having migraine type headaches. She has stopped taking medicine ulnar on stating that she was fine without it. She had couple of headaches but she did not report any further seizure-like episode. She has read her medical records and was not sure about concept of complex partial seizures and benign epilepsy. She sought clarification on these terms during this visit. She continues to manage headaches effectively with non- pharmaceutical interventions and occasionally uses [id number] analgesics for more severe episodes. The recent onset of headaches coincided with her return to work, but they have not warranted significant changes in her daily routine. [facility] Medical History External hordeolum Anxiety Benign breast cyst in female Syncopal episodes HPV test positive Surgical History Hx of biopsy Hx of wisdom tooth extraction Hx of LASIK Family History Maternal Aunt History of breast cancer Social History Housing: House Alcohol intake: current Alcohol intake frequency: holidays/special occasions only Patient Tobacco Use Status: Never used Tobacco e-Cigarette/Vaping Use: Never Used Second Hand Smoke Exposure: No service: No Current occupational status: employed Gender identity: Female Cognitive needs: No Hearing needs: No Vision needs: No Female Reproductive History Menstrual Age of Menarche: 12 Review of Systems Const Details: - Neurologic: Reports complex partial seizures, occasional headaches - Musculoskeletal: Denies any new musculoskeletal symptoms - General: Reports increased frequency of headaches, managed with light exposure modification and hydration - Sleep: No reports of sleep disturbances Physical Exam Neuro Other: Mental Status: Alert and oriented to person, place, and time. Normal attention. Normal spontaneous speech, fluency, and comprehension. No obvious issues with mood and memory. Affect is appropriate. Cranial Nerves: CN II: Visual kay full to confrontation, visual acuity intact. CN III, IV, : Pupils equal, round, reactive to light and accommodation. Extraocular movements are normal. CN V: Facial sensation is normal. CN VII: Facial movements symmetrical. CN VIII: Hearing intact to bedside conversation is normal. CN IX, X: Palate elevates symmetrically. CN XI: Shoulder shrug and head turn symmetrical. CN XII: Tongue midline without atrophy or fasciculations. Extrapyramidal: Full facial expressions and blinking. No rigidity. Movements are appropriate with no tremor or abnormality. Speech: Normal; no dysarthria or tremor. Assessment & Plan Assessment & Plan (1) Epilepsy: Comment: Meds tried: Anuradha Vazquez Amb EEG at [facility] in December 2024: Phase reversal at T3 Amb EEG at [facility] in May 2024: Bitemporal sharps Routine EEG at [facility] in Feb 2024: WNL MRI brain WO at [facility] in Mar 2024: WNL Code(s): G40.909 - Epilepsy, unspecified, not intractable, without status epilepticus Category: Medical Qualifiers: Epilepsy type: unspecified Intractability: not intractable Status epilepticus: without status epilepticus Qualified Code(s): G40.909 - Epilepsy, unspecified, not intractable, without status epilepticus (2) Migraine headache without aura: Code(s): G43.009 - Migraine without aura, not intractable, without status migrainosus Category: Medical Qualifiers: Status migrainosus presence: without status migrainosus Intractability: intractable Qualified Code(s): G43.019 - Migraine without aura, intractable, without status migrainosus (3) Ulnar neuropathy: Code(s): G56.20 - Lesion of ulnar nerve, unspecified upper limb Category: Medical Qualifiers: Laterality: left Qualified Code(s): G56.22 - Lesion of ulnar nerve, left upper limb Plan Impression: a: Complex partial seizure disorder. She has stopped taking medicine on her own stating that spells were not happening. She had number of questions about this concept in she was educated again about seizures, partial and complex partial seizures, and the concept of benign epilepsy where patients may have seizures but but otherwise they might be normal. b: Migraine, which she has been treating with non medicinal means and mdto-qvi-betalin medicines stating that she was fine with that. c: Anxiety/panic type symptoms. She was concerned that some part of her work might trigger more anxiety and stress and other symptoms. She needed accommodation. D: Left dorsal ulnar sensory neuropathy Rec: Best approach was to take a medicine to prevent or control seizures. She has decided not to take the medicine. This approach might put her at risk for these spells again and associated physical and emotional complications including possibility of accident. She had been educated about these concepts. Work related accommodation might help to lower possibility of anxiety/panic attacks and associated symptoms. She was advised to contact us or make another appointment if her symptoms would worsened. She is advised to avoid wearing tight bands or a watch around her left wrist, which might have triggered ulnar neuropathy. Coding Level of Care Code Est Pt Level 5 (38730) Diagnoses Nonintractable epilepsy without status epilepticus, unspecified epilepsy type G40.909 Epilepsy type: unspecified Intractability: not intractable Status epilepticus: without status epilepticus Intractable migraine without aura and without status migrainosus G43.019 Status migrainosus presence: without status migrainosus Intractability: intractable Ulnar neuropathy of left upper extremity G56.22 Laterality: left
--- OUTSIDE RECORDS SUMMARY | 2025-04-02 11:14 | XMS_ITS | Clinical Summary ---
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
== END 2025-04-02 09:43 | disposition home or self-care (01) ==
LOC: HO.HSM 09:26
PROVIDERS: PCP Internal Medicine; Referring Provider Internal Medicine; Visit Provider Psychiatry & Neurology Neurology
DX: G40.909 Epilepsy, unspecified, not intractable, without status epilepticus (principal); G43.019 Migraine without aura, intractable, without status migrainosus; G56.22 Lesion of ulnar nerve, left upper limb
CPT/HCPCS: 99214

== ENCOUNTER → 2025-05-03 12:31 | Outpatient (BNVA) | payer OTHER, SELFPAY | PROVIDERS: Visit Provider Physician Assistant Medical | DX: S80.12XA Contusion of left lower leg, initial encounter (principal); W50.1XXA Accidental kick by another person, initial encounter | CPT/HCPCS: 99202 ==

== ENCOUNTER → 2025-05-31 14:14 | Outpatient (BNVA) | payer OTHER, SELFPAY | PROVIDERS: Visit Provider Physician Assistant | DX: S00.531A Contusion of lip, initial encounter (principal); Y04.2XXA Assault by strike against or bumped into by another person, initial encounter; F43.0 Acute stress reaction; G40.909 Epilepsy, unspecified, not intractable, without status epilepticus | CPT/HCPCS: 99204 ==